=== PATIENT | male | born 1960 | race African-American/Black ===

== ENCOUNTER 2016-05-14 18:16 | Emergency (ER) | payer MEDICARE, MEDICAID, OTHER ==
[~2016-05-14] VITALS: Ht 172.7 cm; Wt 100.0 kg
[~2016-05-14 18:16] MED LIST: FLUT1SPR9; GLIP5 PO; GLUC10TA3 PO; LISI-360 PO; METF-324 PO; NAPR-576 PO; POLY10O RIGHT EYE; [UNRECOGNIZED DRUG - OTHER] PO
[2016-05-14 18:21] VITALS: BP 154/84; PULSE 99; RESP 16; TEMP 98.4; O2SAT 98
[2016-05-14] MEDS ORDERED: CANA300T PO (18:28)
[2016-05-14] MEDS ORDERED: LISI10TA3 PO (18:28)
[2016-05-14] MEDS ORDERED: METF1000 PO (18:28)
--- NOTE | 2016-05-14 18:35 | PD ---
HPI Chief Complaint: Cold / Flu Symptoms Time Seen by Provider: 18:35 Travel History International Travel<30 days: No Contact w/Intl Traveler<30days: No Traveled to known affect area: No History of Present Illness HPI 56-year-old male with history of DM, HTN presents to the ED for evaluation of 5 day history of sinus congestion, clear rhinorrhea, sore throat, nonproductive cough, subjective fevers. Gradual onset. Patient denies headache, chest pain, shortness breath, nausea, vomiting, abdominal pain, dysuria, back pain. He denies receiving this years flu vaccination. He endorses multiple sick contacts. He's been treating with [id number] cold medications with only mild improvement of his symptoms. PFSH Past Medical History Arthritis: Yes Asthma: No Blood Disorders: No Anxiety: No Depression: No Heart Rhythm Problems: No Cancer: No Cardiovascular Problems: No High Cholesterol: Yes Chemotherapy: No Chest Pain: No Congestive Heart Failure: No COPD: No Diabetes: Yes Patient Takes Glucophage: Yes Diminished Hearing: No Endocrine: Yes Gastrointestinal Disorders: No GERD: No Glaucoma: No Genitourinary: Yes (POLYURIA) Hiatal Hernia: No Hypertension: Yes Immune Disorder: No Implanted Vascular Access Dvce: No Musculoskeletal: Yes (CHRONIC BACK PAIN) Neurologic: No Psychiatric: No Reproductive: No Respiratory: Yes Myocardial Infarction: No Radiation Therapy: No Sickle Cell Disease: No Sleep Apnea: No Ulcer: No Tetanus Vaccination: > 5 Years PNEUMOCCOCAL Vaccine (Year): 1 Past Surgical History Abdominal Surgery: No AICD: No Appendectomy: No Arteriovenous Shunt: No Cardiac Surgery: No Ear Surgery: No Endocrine Surgery: No Eye Surgery: No Genitourinary Surgery: No Gynecologic Surgery: No Insulin Pump: No Joint Replacement: No Neurologic Surgery: No Oral Surgery: No Pacemaker: No Thoracic Surgery: No Other Surgery: Yes Social History Alcohol Use: No Tobacco Use: No Substance Use: No Allergies-Medications (Allergen,Severity, Reaction): Coded Allergies: No Known Allergies (Verified , 05/14/16) Reported Meds & Prescriptions Reported Meds & Active Scripts Active Azithromycin 250 Mg Tab 250 Mg PO DIRECTED Take 2 tabs (500 mg) on day 1 then 1 tab daily x 4 days. Reported Lisinopril 10 Mg Tab 10 Mg PO DAILY Invokana (Canagliflozin) 300 Mg Tab 300 Mg PO DAILY Take before 1st meal of day. Metformin (Metformin HCl) 1,000 Mg Tab 1,000 Mg PO BIDPC With meals Review of Systems Except as stated in HPI: all other systems reviewed are Neg Physical Exam Narrative GENERAL: Well-nourished, well-developed nontoxic appearing black male in no acute distress. SKIN: Warm and dry. HEAD: Normocephalic. Atraumatic. EYES: No scleral icterus. No injection or drainage. PERRLA. EOMI. ENT: Pearly aguero tympanic membranes bilaterally. Nasal mucosa is moist, mildly erythematous. Oropharynx with mild posterior erythema. No edema or exudate. Tonsils 1+ bilaterally. Uvula midline. NECK: Supple, trachea midline. No JVD or lymphadenopathy. CARDIOVASCULAR: Regular rate and rhythm without murmurs, gallops, or rubs. 2+ DP and radial pulses bilaterally. RESPIRATORY: Breath sounds clear and equal bilaterally. No accessory muscle use. GASTROINTESTINAL: Abdomen soft, non-tender, nondistended. + Bowel sounds MUSCULOSKELETAL: No cyanosis, or edema. Patient is ambulatory and moves extremities spontaneously. BACK: Nontender without obvious deformity. No CVA tenderness. Data Data Last Documented VS Vital Signs Date Time Temp Pulse Resp B/P Pulse Ox O2 Delivery O2 Flow Rate FiO2 05/14/16 18:21 98.4 99 16 154/84 98 Orders Influenzae A/B Antigen (05/14/16 18:39) Group A Rapid Strep Screen (05/14/16 18:39) Strep Culture (Group A) (05/14/16 18:40) MDM Medical Decision Making Medical Screen Exam Complete: Yes Emergency Medical Condition: Yes Differential Diagnosis Viral syndrome versus influenza versus pharyngitis versus strep pharyngitis versus less likely pneumonia versus other Narrative Course 56-year-old male with history of DM, HTN presents to the ED for evaluation of 5 day history of gradual onset sinus congestion, clear rhinorrhea, sore throat, nonproductive cough, subjective fevers. Patient denies headache, ear pain, chest pain, shortness breath, nausea, vomiting, abdominal pain, dysuria, back pain. He denies receiving this years flu vaccination. Vitals reviewed. Physical exam reveals a nontoxic-appearing black male in no acute distress. Pearly aguero tympanic membranes bilaterally, nasal mucosa mildly erythematous, moist, oropharynx with mild posterior erythema, 1+ tonsils. No exudates. Uvula midline. No LAD. Chest is clear to auscultation bilaterally. Influenza: Negative Rapid strep swab: Negative Given the patient's comorbidity of diabetes we'll treat for upper respiratory infection with Z-Tay. Patient is instructed to take all antibiotics as prescribed, even if symptoms resolve, continue with symptomatic treatment at home, follow-up with primary care provider. He indicated understanding of the instructions. He is amenable to plan of care. He is stable and discharged home. Diagnosis Primary Impression: Upper respiratory infection Qualified Code: J06.9 - Upper respiratory tract infection, unspecified type Referrals: Primary Care Physician Patient Instructions: General Instructions, Upper Respiratory Infection (ED) Additional Instructions: Rest, hydrate. Take all medication as prescribed, even if your symptoms resolve. Follow-up with the primary care provider this week. Return to the ED for any urgent or emergent medical condition. Med/Other Pt SpecificInfo: Prescription(s) given Scripts Azithromycin 250 Mg Eng303 Mg PO DIRECTED #6 TAB Ref 0 Take 2 tabs (500 mg) on day 1 then 1 tab daily x 4 days. Prov:Emiliana Luna MD 05/14/16 Disposition: 01 DISCHARGE HOME Condition: Stable Clarita Bingham May 14, 2016 18:35
[2016-05-14] MEDS ORDERED: AZIT250T3 PO (19:10)
== END 2016-05-14 19:27 | disposition home or self-care (01) ==
LOC: NETRI 18:16
DX: J06.9 Acute upper respiratory infection, unspecified (principal); R05 Cough; I10 Essential (primary) hypertension; E11.9 Type 2 diabetes mellitus without complications; E78.00 Pure hypercholesterolemia, unspecified; Z79.84 Long term (current) use of oral hypoglycemic drugs; Z87.39 Personal history of other diseases of the musculoskeletal system and connective tissue; Z87.448 Personal history of other diseases of urinary system; Z87.09 Personal history of other diseases of the respiratory system
CPT/HCPCS: 87081; 87804; 87880; 99283

== ENCOUNTER 2016-08-30 13:13 | Emergency (ER) | payer MEDICARE, MEDICAID ==
[~2016-08-30] VITALS: Ht 172.7 cm; Wt 101.0 kg
[~2016-08-30 13:13] MED LIST changes: +AZIT250T3 PO; +CANA300T PO; -FLUT1SPR9; -GLIP5 PO; -GLUC10TA3 PO; -LISI-360 PO; +LISI10TA3 PO; -METF-324 PO; +METF1000 PO; -NAPR-576 PO; -POLY10O RIGHT EYE; -[UNRECOGNIZED DRUG - OTHER] PO
[2016-08-30 13:15] VITALS: BP 118/63; PULSE 80; RESP 20; TEMP 97.5; O2SAT 97
[2016-08-30] MEDS ORDERED: ROBA500T PO (15:20)
[2016-08-30] MEDS ORDERED: IBUP800T23 PO (15:20)
--- NOTE | 2016-08-30 15:21 | PD ---
HPI Chief Complaint: Back/ Neck Pain or Injury Time Seen by Provider: 15:18 Travel History International Travel<30 days: No Contact w/Intl Traveler<30days: No Traveled to known affect area: No History of Present Illness HPI 56yo M c/o right sided low back w/ sciatica since Tuesday after bowling. Hx of chronic low back pain and sciatica [id number]. Denies encopresis, incontinence , saddle anesthesias. Denies paresthesias, loss of sensation, decreased range of motion, decreased strength bilateral lower extremities. Denies IV drug use, cancer. Denies fever, vomiting, abdominal pain. Taking any medications or tried any treatments to alleviate his symptoms. Pain is aggravated with inhalation and movement. No known allergies. Has no other medical complaints. No other modifying factors or associated signs and symptoms. PFSH Past Medical History Arthritis: Yes Asthma: No Blood Disorders: No Anxiety: No Depression: No Heart Rhythm Problems: No Cancer: No Cardiovascular Problems: Yes (HTN) High Cholesterol: Yes Chemotherapy: No Chest Pain: No Congestive Heart Failure: No COPD: No Diabetes: Yes Diminished Hearing: No Endocrine: Yes Gastrointestinal Disorders: No GERD: No Glaucoma: No Genitourinary: Yes (POLYURIA) Hiatal Hernia: No Hypertension: Yes Immune Disorder: No Implanted Vascular Access Dvce: No Musculoskeletal: Yes (CHRONIC BACK PAIN) Neurologic: No Psychiatric: No Reproductive: No Respiratory: Yes Myocardial Infarction: No Radiation Therapy: No Sickle Cell Disease: No Sleep Apnea: No Ulcer: No PNEUMOCCOCAL Vaccine (Year): 1 Past Surgical History Abdominal Surgery: No AICD: No Appendectomy: No Arteriovenous Shunt: No Cardiac Surgery: No Ear Surgery: No Endocrine Surgery: No Eye Surgery: No Genitourinary Surgery: No Gynecologic Surgery: No Insulin Pump: No Joint Replacement: No Neurologic Surgery: No Oral Surgery: No Pacemaker: No Thoracic Surgery: No Other Surgery: Yes Social History Alcohol Use: No Tobacco Use: No Substance Use: No Allergies-Medications (Allergen,Severity, Reaction): Coded Allergies: No Known Allergies (Verified , 08/30/16) Reported Meds & Prescriptions Reported Meds & Active Scripts Active Ibuprofen 800 Mg Tab 800 Mg PO Q6HR PRN Robaxin (Methocarbamol) 500 Mg Tab 500 Mg PO QID PRN Azithromycin 250 Mg Tab 250 Mg PO DIRECTED Take 2 tabs (500 mg) on day 1 then 1 tab daily x 4 days. Reported Lisinopril 10 Mg Tab 10 Mg PO DAILY Invokana (Canagliflozin) 300 Mg Tab 300 Mg PO DAILY Take before 1st meal of day. Metformin (Metformin HCl) 1,000 Mg Tab 1,000 Mg PO BIDPC With meals Review of Systems Except as stated in HPI: all other systems reviewed are Neg Physical Exam Narrative GENERAL: Well-nourished, well-developed male patient, in no acute distress SKIN: Warm and dry. HEAD: Atraumatic. Normocephalic. EYES: Pupils equal and round. No scleral icterus. No injection or drainage. ENT: Mucosa pink and moist. Airway patent. NECK: Trachea midline. CARDIOVASCULAR: Regular rate. RESPIRATORY: No accessory muscle use. GASTROINTESTINAL: Rounded. MUSCULOSKELETAL: Bilateral lower extremities supple and non-tense with 2+ pedal pulses and sensory intact; with full range of motion and 5/5 strength. 2 + DTRs bilaterally. Active dorsiflexion and extension of bilateral feet. Right straight leg raise is positive for low back pain. Ambulatory in room with normal gait. Sitting up in bed at 90. No obvious deformities. No clubbing. No cyanosis. No edema. BACK: No midline point tenderness on palpation of the lumbar spine. Tenderness on palpation of right iliosacral area. No obvious deformities. NEUROLOGICAL: Awake and alert. Oriented 3. No obvious cranial nerve deficits. Motor grossly within normal limits. Normal speech. Moves all extremities. 5/5 strength to all extremities. Sensory intact. PSYCHIATRIC: Appropriate mood and affect; insight and judgment normal. Data Data Last Documented VS Vital Signs Date Time Temp Pulse Resp B/P Pulse Ox O2 Delivery O2 Flow Rate FiO2 08/30/16 13:15 97.5 80 20 118/63 97 Room Air Orders Ketorolac Inj (Toradol Inj) (08/30/16 15:30) Orphenadrine Inj (Norflex Inj) (08/30/16 15:30) MDM Medical Decision Making Medical Screen Exam Complete: Yes Emergency Medical Condition: Yes Medical Record Reviewed: Yes Differential Diagnosis Acute exacerbation of chronic low back pain, sciatica, low back strain Narrative Course 56-year-old male with history of chronic low back pain and sciatica with acute exacerbation of low back pain with right-sided sciatica after bowling on Tuesday. Denies encopresis, incontinence, saddle anesthesias. Patient ambulatory in the room with normal gait. No midline point tenderness on palpation of the lumbar spine. Denies IV drug use or cancer. Patient afebrile nontoxic-appearing. He denies fever, vomiting. Toradol and Norflex administered in the ER. Ibuprofen and Robaxin prescribed for home. Patient verbalizes understanding and agreement with treatment plan. Patient is medically cleared and stable for discharge. Discussed reasons to return to the emergency department. Instructed patient to follow up with primary care provider. Patient agrees with treatment plan. The patients vital signs are stable and the patient is stable for outpatient follow-up and treatment. Patient discharged home, stable and in no acute distress. Diagnosis Primary Impression: Low back pain with right-sided sciatica Qualified Code: M54.41 - Right-sided low back pain with right-sided sciatica, unspecified chronicity Referrals: Primary Care Physician Patient Instructions: Acute Low Back Pain (ED), General Instructions, Sciatica (ED) Departure Forms: Tests/Procedures, Work Release Enter return to work date: September 02, 2016 Additional Instructions: Tylenol or ibuprofen as directed and as needed for pain Robaxin as prescribed and as needed for muscle spasms Heating pad and/or ice to affected area to reduce pain Avoid aggravating activities; increase activity as tolerated Follow-up with primary care provider Return to emergency department immediately with worsening of symptoms Med/Other Pt SpecificInfo: Prescription(s) given Scripts Ibuprofen 800 Mg [id number] Mg PO Q6HR PRN (PAIN) #30 TAB Ref 0 Prov:Essie Simon 08/30/16 Methocarbamol (Robaxin)500 Mg [id number] Mg PO QID PRN (MUSCLE SPASM) #30 TAB Ref 0 Prov:Essie Simon 08/30/16 Disposition: 01 DISCHARGE HOME Condition: Stable Essie Simon August 30, 2016 15:21 Essie Simon August 30, 2016 15:21
[2016-08-30] MEDS ORDERED: ORPHENADRINE INJ 60 MG/2 ML AMP IM ONE (15:30)
[2016-08-30] MEDS ORDERED: KETOROLAC TROMETHAMINE 60 MG/2 ML (IM) VIAL IM ONE (15:30)
== END 2016-08-30 15:40 | disposition home or self-care (01) ==
LOC: NEPK 13:13
DX: M54.41 Lumbago with sciatica, right side (principal); I10 Essential (primary) hypertension
CPT/HCPCS: 96372; 99283; J1885; J2360

== ENCOUNTER 2016-09-14 09:46 | Emergency (ER) | payer MEDICARE, MEDICAID ==
[~2016-09-14] VITALS: Ht 175.3 cm; Wt 100.0 kg
[~2016-09-14 09:46] MED LIST changes: +IBUP800T23 PO; +ROBA500T PO
[2016-09-14 09:49] VITALS: BP 145/92; PULSE 75; RESP 20; TEMP 97.5; O2SAT 98
[2016-09-14] MEDS ORDERED: SODIUM CHLOR 0.9% 1000 ML INJ 1,000 ML IV ONE (10:26)
[2016-09-14] MEDS ORDERED: ONDANSETRON HCL 4 MG/2 ML VIAL IVP ONE (10:30)
[2016-09-14] MEDS ORDERED: SODIUM CHLORIDE 0.9% FLUSH 10 ML FLUSH IVF PRN (10:30)
--- NOTE | 2016-09-14 10:36 | PD ---
HPI Chief Complaint: Dizziness Time Seen by Provider: 10:17 Travel History International Travel<30 days: No Contact w/Intl Traveler<30days: No Traveled to known affect area: No History of Present Illness HPI 56yo M with PMH of NIDDM presents to the ED with c/o not feeling well today. States he felt lightheaded when he stood up and felt nauseous. Also feels a little sob. Denies any fever, cough, chest pain, vomiting, abdominal pain, urinary complaint, diarrhea, focal weakness or numbness. PFSH Past Medical History Arthritis: Yes Asthma: No Blood Disorders: No Anxiety: No Depression: No Heart Rhythm Problems: No Cancer: No Cardiovascular Problems: Yes (htn) High Cholesterol: Yes Chemotherapy: No Chest Pain: No Congestive Heart Failure: No COPD: No Diabetes: Yes (metformin) Patient Takes Glucophage: Yes Diminished Hearing: No Endocrine: Yes Gastrointestinal Disorders: No GERD: No Glaucoma: No Genitourinary: Yes (POLYURIA) Hiatal Hernia: No Hypertension: Yes Immune Disorder: No Implanted Vascular Access Dvce: No Musculoskeletal: Yes (CHRONIC BACK PAIN) Neurologic: No Psychiatric: No Reproductive: No Respiratory: Yes Myocardial Infarction: No Radiation Therapy: No Sickle Cell Disease: No Sleep Apnea: No Ulcer: No PNEUMOCCOCAL Vaccine (Year): 1 Past Surgical History Abdominal Surgery: No AICD: No Appendectomy: No Arteriovenous Shunt: No Cardiac Surgery: No Ear Surgery: No Endocrine Surgery: No Eye Surgery: No Genitourinary Surgery: No Gynecologic Surgery: No Insulin Pump: No Joint Replacement: No Neurologic Surgery: No Oral Surgery: No Pacemaker: No Thoracic Surgery: No Other Surgery: Yes Social History Alcohol Use: No Tobacco Use: No Substance Use: No Allergies-Medications (Allergen,Severity, Reaction): Coded Allergies: No Known Allergies (Verified , 09/14/16) Reported Meds & Prescriptions Reported Meds & Active Scripts Active Reported Lisinopril 10 Mg Tab 10 Mg PO DAILY Invokana (Canagliflozin) 300 Mg Tab 300 Mg PO DAILY Take before 1st meal of day. Metformin (Metformin HCl) 1,000 Mg Tab 1,000 Mg PO BIDPC With meals Review of Systems Except as stated in HPI: all other systems reviewed are Neg Physical Exam Narrative GENERAL: 56yo M not in distress. SKIN: Focused skin assessment warm/dry. HEAD: Atraumatic. Normocephalic. EYES: Pupils equal and round. No scleral icterus. No injection or drainage. EOMI. No nystagmus. ENT: No nasal bleeding or discharge. Mucous membranes pink and moist. NECK: Trachea midline. No JVD. CARDIOVASCULAR: Regular rate and rhythm. No murmur appreciated. RESPIRATORY: No accessory muscle use. Clear to auscultation. Breath sounds equal bilaterally. GASTROINTESTINAL: Abdomen soft, non-tender, nondistended. No rebound tenderness or guading. MUSCULOSKELETAL: No obvious deformities. No clubbing. No cyanosis. No edema. NEUROLOGICAL: Awake and alert. No obvious cranial nerve deficits. Motor grossly within normal limits. Normal speech. PSYCHIATRIC: Appropriate mood and affect; insight and judgment normal. Data Data Last Documented VS Vital Signs Date Time Temp Pulse Resp B/P Pulse Ox O2 Delivery O2 Flow Rate FiO2 09/14/16 10:55 64 18 121/67 64 18 122/70 65 18 124/74 09/14/16 10:55 95 Room Air 09/14/16 09:49 97.5 Orders Electrocardiogram (09/14/16 10:26) Basic Metabolic Panel (Bmp) (09/14/16 10:26) Complete Blood Count With Diff (09/14/16 10:26) Ckmb (Isoenzyme) Profile (09/14/16 10:26) Troponin I (09/14/16 10:26) Ecg Monitoring (09/14/16 10:26) Iv Access Insert/Monitor (09/14/16 10:26) Oximetry (09/14/16 10:26) Ondansetron Inj (Zofran Inj) (09/14/16 10:30) Sodium Chloride 0.9% Flush (Ns Flush) (09/14/16 10:30) Sodium Chlor 0.9% 1000 Ml Inj (Ns 1000 M (09/14/16 10:26) Orthostatic Vital Signs (09/14/16 10:26) Chest, Single Ap (09/14/16 ) Urinalysis - C+S If Indicated (09/14/16 10:36) CKMB (09/14/16 10:30) CKMB% (09/14/16 10:30) Labs Laboratory Tests Test 09/14/16 10:30 White Blood Count 8.2 TH/MM3 Red Blood Count 6.03 MIL/MM3 Hemoglobin 17.0 GM/DL Hematocrit 51.1 % Mean Corpuscular Volume 84.8 FL Mean Corpuscular Hemoglobin 28.2 PG Mean Corpuscular Hemoglobin 33.2 % Concent Red Cell Distribution Width 13.6 % Platelet Count 202 TH/MM3 Mean Platelet Volume 9.8 FL Neutrophils (%) (Auto) 41.2 % Lymphocytes (%) (Auto) 46.1 % Monocytes (%) (Auto) 9.2 % Eosinophils (%) (Auto) 3.0 % Basophils (%) (Auto) 0.5 % Neutrophils # (Auto) 3.4 TH/MM3 Lymphocytes # (Auto) 3.8 TH/MM3 Monocytes # (Auto) 0.8 TH/MM3 Eosinophils # (Auto) 0.2 TH/MM3 Basophils # (Auto) 0.0 TH/MM3 CBC Comment AUTO DIFF Differential Comment AUTO DIFF CONFIRMED Sodium Level 137 MEQ/L Potassium Level 3.8 MEQ/L Chloride Level 102 MEQ/L Carbon Dioxide Level 25.3 MEQ/L Anion Gap 10 MEQ/L Blood Urea Nitrogen 16 MG/DL Creatinine 1.22 MG/DL Estimat Glomerular Filtration 75 ML/MIN Rate Random Glucose 199 MG/DL Calcium Level 9.3 MG/DL Total Creatine Kinase 244 U/L Creatine Kinase MB 1.6 NG/ML Troponin I LESS THAN 0.02 NG/ML MDM Medical Decision Making Medical Screen Exam Complete: Yes Emergency Medical Condition: Yes Interpretation(s) EKG: NSR 66bpm. Normal axis. Q wave in III, aVF. No ST segment elevation or depression. Differential Diagnosis Dehydration vs. electrolyte abnormality vs. pneumonia Narrative Course 56yo M with c/o lightheadedness today. Labs reviewed, no leukocytosis. H/H on the higher side. Troponin negative. Orthostatic negative. CXR negative. Upon reevaluation, pt states he had fentanyl patch on for back pain yesterday and he has never had this before. Pt reevaluated at bedside and is feeling better. Return precautions given. Diagnosis Primary Impression: Lightheadedness Patient Instructions: General Instructions Departure Forms: Tests/Procedures Additional Instructions: Please follow up with your PMD in 3-7 days. Return to the ED if symptoms worsen. Med/Other Pt SpecificInfo: No Change to Meds Disposition: 01 DISCHARGE HOME Condition: Stable Ana M Tamayoana MARTINEZ September 14, 2016 10:36
[2016-09-14 10:54] LABS: AUTOMATED NEUTROPHIL # 3.4 TH/MM3 (1.8-7.7); BASOPHIL % 0.5 % (0.0-2.0); EOSINOPHIL # 0.2 TH/MM3 (0-0.4); HEMATOCRIT 51.1 % (39.0-51.0); LYMPH % 46.1 % (9.0-44.0); LYMPHOCYTE # 3.8 TH/MM3 (1.0-4.8); MEAN CELL VOLUME 84.8 FL (80.0-100.0); MEAN CORPUSCULAR HEMOGLOBIN 28.2 PG (27.0-34.0); MEAN CORPUSCULAR HGB CONC 33.2 % (32.0-36.0); MONO % 9.2 % (0.0-8.0); NEUT % 41.2 % (16.0-70.0); PLATELET COUNT 202 TH/MM3 (150-450); RED BLOOD COUNT 6.03 MIL/MM3 (4.50-5.90); RED CELL DISTRIBUTION WIDTH 13.6 % (11.6-17.2); WHITE BLOOD COUNT 8.2 TH/MM3 (4.0-11.0)
[2016-09-14 10:55] VITALS: BP_SYST 121; BP_SYST 122; BP_SYST 124; BP_DIAS 67; BP_DIAS 70; BP_DIAS 74; RESP 18; O2SAT 95
[2016-09-14 10:57] LABS: HEMO FLAGS AUTO DIFF
--- NOTE | 2016-09-14 11:07 | RADRPT ---
EXAM DATE/TIME: 09/14/2016 10:43 [facility] COMPARISON: No previous studies available for comparison. INDICATIONS : Short of breath, sweats, dizzy MEDICAL HISTORY : diabetes, high blood pressure. SURGICAL HISTORY : None. ENCOUNTER: Initial ACUITY: 1 day PAIN SCORE: 0/10 LOCATION: Bilateral chest FINDINGS: A single view of the chest demonstrates the lungs to be symmetrically aerated without evidence of mas s, infiltrate or effusion. The cardiomediastinal contours are unremarkable. Osseous structures are intact. CONCLUSION: Normal examination for a patient of this age. Jamil Mcdermott MD on September 14, 2016 at 11:06 Board Certified Radiologist. This report was verified electronically.
[2016-09-14 11:20] LABS: ANION GAP 10 MEQ/L (5-15); BICARBONATE 25.3 MEQ/L (21.0-32.0); BLOOD UREA NITROGEN 16 MG/DL (7-18); CHLORIDE 102 MEQ/L (98-107); CREATINE KINASE 244 U/L (39-308); GLOMERULAR FILTRATION RATE 75 ML/MIN (>89); SODIUM (NA) 137 MEQ/L (136-145)
[2016-09-14 11:21] LABS: POTASSIUM 3.8 MEQ/L (3.5-5.1)
[2016-09-14 11:32] LABS: SCAN/DIFF AUTO DIFF CONFIRMED
[2016-09-14 11:34] LABS: CKMB 1.6 NG/ML (0.5-3.6)
[2016-09-14 12:15] LABS: BLOOD, URINE NEG (NEG); COMMENT (UR) CULT NOT INDICATED; CULTURE IF INDICATED CULT NOT INDICATED; GLUCOSE,URINE 1000 mg/dL (NEG); KETONE, URINE 10 mg/dL (NEG); MUCUS URINE FEW /lpf (OCC); NITRITE,URINE NEG (NEG); SQUAMOUS EPITHELIAL CELL URINE <1 /hpf (0-5); URINE COLOR LIGHT-YELLOW (YELLW/STRAW)
--- NOTE | 2016-09-15 09:44 | EKG ---
Date Performed: 09/14/2016 Time Performed: 10:55:14 PTAGE: 56 years EKG: Sinus rhythm PROBABLE INFERIOR MYOCARDIAL INFARCTION ABNORMAL ECG PREVIOUS TRACING : 04/03/2011 17.15 DOCTOR: Thanh Braun Interpretating Date/Time 09/15/2016 09:42:37
== END 2016-09-14 12:28 | disposition home or self-care (01) ==
LOC: NEPE 09:46
DX: R42 Dizziness and giddiness (principal); R11.0 Nausea; R06.02 Shortness of breath; R94.31 Abnormal electrocardiogram [ECG] [EKG]; I10 Essential (primary) hypertension; E11.9 Type 2 diabetes mellitus without complications; E78.00 Pure hypercholesterolemia, unspecified; Z79.84 Long term (current) use of oral hypoglycemic drugs; Z87.39 Personal history of other diseases of the musculoskeletal system and connective tissue; Z86.79 Personal history of other diseases of the circulatory system; Z87.448 Personal history of other diseases of urinary system
CPT/HCPCS: 71010; 80048; 81001; 82550; 82552; 84484; 85025; 93005; 96374; 99285; J2405; J7030

== ENCOUNTER 2016-12-29 22:02 | Emergency (ER) | payer MEDICARE, MEDICAID ==
[~2016-12-29] VITALS: Ht 172.7 cm; Wt 100.0 kg
[~2016-12-29 22:02] MED LIST changes: -AZIT250T3 PO; -IBUP800T23 PO; -ROBA500T PO
[2016-12-29 22:04] VITALS: BP 160/83; PULSE 85; RESP 16; TEMP 98.5; O2SAT 96
[2016-12-29] MEDS ORDERED: CEPH-460 PO (23:08)
[2016-12-29] MEDS ORDERED: BACT800T5 PO (23:08)
--- NOTE | 2016-12-29 23:12 | PD ---
HPI Chief Complaint: Injury Time Seen by Provider: 23:09 Travel History International Travel<30 days: No Contact w/Intl Traveler<30days: No Traveled to known affect area: No History of Present Illness HPI 56-year-old right-hand dominant black male presents to emergency department with complains of pain and swelling to his right little finger. He states that he does not recall any direct injury. He states the pain is at the tip of his finger around the nail. Symptoms been present now for the last 2 days. He denies any fever chills. No drainage. Symptoms are moderate. No alleviating activity. PFSH Past Medical History Narrative Medical Diabetes and hypertension Arthritis: Yes Asthma: No Blood Disorders: No Anxiety: No Depression: No Heart Rhythm Problems: No Cancer: No Cardiovascular Problems: Yes (htn) High Cholesterol: Yes Chemotherapy: No Chest Pain: No Congestive Heart Failure: No COPD: No Diabetes: Yes (on metformin) Patient Takes Glucophage: Yes Diminished Hearing: No Endocrine: Yes Gastrointestinal Disorders: No GERD: No Glaucoma: No Genitourinary: Yes (POLYURIA) Hiatal Hernia: No Heparin Induced Thrombocytopen: No Hypertension: Yes Immune Disorder: No Implanted Vascular Access Dvce: No Musculoskeletal: Yes (CHRONIC BACK PAIN) Neurologic: No Psychiatric: No Reproductive: No Respiratory: Yes Myocardial Infarction: No Radiation Therapy: No Sickle Cell Disease: No Sleep Apnea: No Ulcer: No Tetanus Vaccination: > 5 Years PNEUMOCCOCAL Vaccine (Year): 1 Past Surgical History Abdominal Surgery: No AICD: No Appendectomy: No Arteriovenous Shunt: No Cardiac Surgery: No Ear Surgery: No Endocrine Surgery: No Eye Surgery: No Genitourinary Surgery: No Gynecologic Surgery: No Insulin Pump: No Joint Replacement: No Neurologic Surgery: No Oral Surgery: No Pacemaker: No Thoracic Surgery: No Other Surgery: Yes Social History Alcohol Use: No Tobacco Use: No Substance Use: No Allergies-Medications (Allergen,Severity, Reaction): Coded Allergies: No Known Allergies (Verified , 12/29/16) Reported Meds & Prescriptions Reported Meds & Active Scripts Active Reported Lisinopril 10 Mg Tab 10 Mg PO DAILY Invokana (Canagliflozin) 300 Mg Tab 300 Mg PO DAILY Take before 1st meal of day. Metformin (Metformin HCl) 1,000 Mg Tab 1,000 Mg PO BIDPC With meals Review of Systems Except as stated in HPI: all other systems reviewed are Neg Physical Exam Narrative GENERAL: This is a well-nourished, well-developed patient, in no apparent distress. SKIN: No rashes, ecchymoses or lesions. Warm and dry. HEAD: Atraumatic. Normocephalic. EYES: PERRL, EOMI, no discharge or injection. No scleral icterus. EARS: Clear NOSE: Nasal turbinates appear normal. THROAT: Mucosa pink and moist. Airway patent. NECK: Trachea midline. supple, moves head freely. LUNGS: Clear to auscultation. CV: Regular in rhythm. ABDOMEN: Soft nontender. EXT: No clubbing cyanosis. Examination the right little finger reveals tenderness to the distal tip along with tenderness along the radial side the nailbed. There is some mild swelling. No erythema or fluctuance. No involvement of the nail. Patient is able to extend and flex his finger freely. He has intact sensation with good Refill. Data Data Last Documented VS Vital Signs Date Time Temp Pulse Resp B/P (MAP) Pulse Ox O2 Delivery O2 Flow Rate FiO2 12/29/16 22:04 98.5 85 16 160/83 (108) 96 Room Air Orders Orders Tetanus/Diphtheria Tox Adult (Tetanus/Di (12/29/16 23:15) Sulfamet-Trimeth Ds 800-160 Mg (Bactrim (12/29/16 23:15) Cephalexin (Keflex) (12/29/16 23:15) MDM Medical Decision Making Medical Screen Exam Complete: Yes Emergency Medical Condition: Yes Medical Record Reviewed: Yes Differential Diagnosis MDM: High Differential diagnoses: Abscess, folliculitis, cellulitis, lymphangitis, abrasion, contact dermatitis, paronychia Narrative Course Patient has a paronychia which has been incised and drained. Patient given active DS and Keflex 500 mg by mouth. Procedures Procedure Narrative I&D abscess: After the risks and benefits were discussed the following procedure was performed. The skin is prepped and draped in the usual sterile fashion using Betadine. The abscess is anesthetized with 1% lidocaine digital block. After adequate anesthesia, an 11 blade scalpel is used to make a stab incision along the lateral aspect of the nailbed.. A small amount of Perulant material is expressed along with some blood. The wound is cleansed deeply using dilute Betadine and peroxide on Q-tips. A clean dressing is applied. The patient tolerated the procedure well. There was no complications. Follow-up instructions were given to the patient. Diagnosis Primary Impression: Paronychia of right little finger Patient Instructions: General Instructions Additional Instructions: Rest. Elevation. Daily wound care with soap, water, Neosporin. Soak in Epsom salts 3 times daily. 3 Advil every 6 hours as needed for pain. Keflex and Bactrim DS. Recheck with your doctor in the next 3-5 days. Return to the ER if any problems. Med/Other Pt SpecificInfo: Prescription(s) given Scripts Cephalexin (Keflex) 500 Mg Capsule 500 MG PO Q6H for Infection, #28 CAP 0 Refills Prov: Tanya Tamayo DO 12/29/16 Sulfamethoxazole-Trimethoprim (Bactrim DS) 800-160 Mg Tab 1 TAB PO BID for Infection, #14 TAB 0 Refills Prov: Tanya Tamayo DO 12/29/16 Disposition: 01 DISCHARGE HOME Condition: Stable Evert Sandoval Dec 29, 2016 23:12
[2016-12-29] MEDS ORDERED: SULFAMETHOXAZOLE-TRIMETHOPRIM DS 800-160 MG TAB PO ONE (23:15)
[2016-12-29] MEDS ORDERED: CEPHALEXIN MONOHYDRATE 500 MG CAP PO ONE (23:15)
[2016-12-29] MEDS ORDERED: TETANUS/DIPHTHERIA TOXOID ADULT 0.5 ML VIAL IM ONE (23:15)
== END 2016-12-29 23:24 | disposition home or self-care (01) ==
LOC: EDTENT 22:02
DX: L03.011 Cellulitis of right finger (principal); L02.511 Cutaneous abscess of right hand; Z23 Encounter for immunization
CPT/HCPCS: 10060; 90471; 90714

== ENCOUNTER 2017-03-17 03:22 | Emergency (ER) | payer MEDICAID, MEDICARE ==
[~2017-03-17] VITALS: Ht 175.3 cm; Wt 100.0 kg
[~2017-03-17 03:22] MED LIST changes: +BACT800T5 PO; +CEPH-460 PO
[2017-03-17 03:23] VITALS: BP 126/86; PULSE 93; RESP 16; TEMP 97.7; O2SAT 100
[2017-03-17] MEDS ORDERED: LISI-519 PO (03:41)
[2017-03-17] MEDS ORDERED: GLIP5TAB8 PO (03:41)
[2017-03-17] MEDS ORDERED: AMOX500T PO (03:55)
--- NOTE | 2017-03-17 03:59 | PD ---
HPI Chief Complaint: ENT Complaint Time Seen by Provider: 03:44 Travel History International Travel<30 days: No Contact w/Intl Traveler<30days: No Traveled to known affect area: No History of Present Illness HPI 57-year-old black male presents emergency Department with complaints of sore throat of 2 days' duration. He states that he has had subjective fever and chills, ear pain, sore throat, some congestion slight cough, and loose stools. He denies any shortness of breath or wheezing. No nausea vomiting. No abdominal pain or urinary symptoms. Symptoms are mild to moderate. Worse with swallowing. No alleviating factors. PFSH Past Medical History Arthritis: Yes Asthma: No Blood Disorders: No Anxiety: No Depression: No Heart Rhythm Problems: No Cancer: No Cardiovascular Problems: Yes (htn) High Cholesterol: Yes Chemotherapy: No Chest Pain: No Congestive Heart Failure: No COPD: No Diabetes: Yes Patient Takes Glucophage: Yes Diminished Hearing: No Endocrine: Yes Gastrointestinal Disorders: No GERD: No Glaucoma: No Genitourinary: Yes (POLYURIA) Hiatal Hernia: No Heparin Induced Thrombocytopen: No Hypertension: Yes Immune Disorder: No Implanted Vascular Access Dvce: No Musculoskeletal: Yes (CHRONIC BACK PAIN) Neurologic: No Psychiatric: No Reproductive: No Respiratory: Yes Myocardial Infarction: No Radiation Therapy: No Sickle Cell Disease: No Sleep Apnea: No Ulcer: No Tetanus Vaccination: < 5 Years PNEUMOCCOCAL Vaccine (Year): 1 Past Surgical History Abdominal Surgery: No AICD: No Appendectomy: No Arteriovenous Shunt: No Cardiac Surgery: No Ear Surgery: No Endocrine Surgery: No Eye Surgery: No Genitourinary Surgery: No Gynecologic Surgery: No Insulin Pump: No Joint Replacement: No Neurologic Surgery: No Oral Surgery: No Pacemaker: No Thoracic Surgery: No Other Surgery: Yes Social History Alcohol Use: No Tobacco Use: No Substance Use: No Allergies-Medications (Allergen,Severity, Reaction): Coded Allergies: No Known Allergies (Verified Adverse Reaction, Unknown, 03/17/17) Reported Meds & Prescriptions Reported Meds & Active Scripts Active Amoxicillin 500 Mg Tab 500 Mg PO TID 10 Days Reported Lisinopril 5 Mg Tab 5 Mg PO DAILY Glipizide 5 Mg Tab 5 Mg PO DAILY Take 30 minutes before a meal Metformin (Metformin HCl) 1,000 Mg Tab 1,000 Mg PO BIDPC With meals Review of Systems Except as stated in HPI: all other systems reviewed are Neg Physical Exam Narrative GENERAL: Well-developed, well-nourished in no acute distress. Nontoxic appearing. HEAD: Normocephalic, atraumatic. EYES: Pupils equal round and reactive. Extraocular motions intact. No scleral icterus. No injection or drainage. ENT: TMs clear without erythema. The external auditory canals clear. Nose: clear . Posterior pharynx is mildly erythematous and moist. No tonsillar edema or exudate. Uvula midline. Airway patent. NECK: Trachea midline.Supple, nontender, moves head freely. No central bony tenderness or spasm. CARDIOVASCULAR: Regular rate and rhythm without murmurs, gallops, or rubs. RESPIRATORY: Clear to auscultation. Breath sounds equal bilaterally. No wheezes , rales, or rhonchi. GASTROINTESTINAL: Abdomen soft, non-tender, nondistended. No hepato-splenomegaly , or palpable masses. No guarding. EXTREMITIES: No clubbing, cyanosis, or edema. No joint tenderness, effusion, or edema noted. BACK: Nontender without deformity or crepitance. No flank tenderness. Data Data Last Documented VS Vital Signs Date Time Temp Pulse Resp B/P (MAP) Pulse Ox O2 Delivery O2 Flow Rate FiO2 03/17/17 03:37 16 03/17/17 03:23 97.7 93 126/86 (99) 100 Room Air Orders Orders Ed Discharge Order (03/17/17 03:54) Amoxicillin (Trimox) (03/17/17 04:00) MDM Medical Decision Making Medical Screen Exam Complete: Yes Emergency Medical Condition: Yes Medical Record Reviewed: Yes Differential Diagnosis MDM: High Differential diagnoses: Pneumonia, bronchitis, URI, pharyngitis Narrative Course Patient given amoxicillin 500 mg by mouth. This is acute pharyngitis, URI Diagnosis Primary Impression: Acute pharyngitis Qualified Codes: J02.9 - Acute pharyngitis, unspecified Additional Impression: URI Patient Instructions: General Instructions Additional Instructions: Rest. Force fluids. Saltwater gargles. Tylenol and Advil. Chloraseptic [place] Cepastat lozenge. Amoxicillin. Follow-up with a primary care doctor in one week. Return to the ER if any problems. Med/Other Pt SpecificInfo: Prescription(s) given Scripts Amoxicillin (Amoxicillin) 500 Mg Tab 500 MG PO TID for Infection for 10 Days, TAB 0 Refills Prov: Carlos Meyers MD 03/17/17 Disposition: 01 DISCHARGE HOME Condition: Stable Evert Sandoval Mar 17, 2017 03:59
[2017-03-17] MEDS ORDERED: AMOXICILLIN (TRIHYDRATE) 500 MG CAP PO ONE (04:00)
== END 2017-03-17 04:25 | disposition home or self-care (01) ==
LOC: NEPD 03:22
DX: J02.9 Acute pharyngitis, unspecified (principal); J06.9 Acute upper respiratory infection, unspecified; R50.9 Fever, unspecified; R05 Cough; R19.7 Diarrhea, unspecified; E11.9 Type 2 diabetes mellitus without complications; I10 Essential (primary) hypertension; E78.00 Pure hypercholesterolemia, unspecified; Z79.84 Long term (current) use of oral hypoglycemic drugs; Z87.39 Personal history of other diseases of the musculoskeletal system and connective tissue; Z86.79 Personal history of other diseases of the circulatory system; Z87.448 Personal history of other diseases of urinary system
CPT/HCPCS: 99282

== ENCOUNTER 2017-06-10 13:52 | Observation (INO) | payer MEDICARE, MEDICAID ==
[~2017-06-10] VITALS: Ht 175.3 cm; Wt 102.0 kg
[~2017-06-10 13:52] MED LIST changes: +AMOX500T PO; -BACT800T5 PO; -CANA300T PO; -CEPH-460 PO; +GLIP5TAB8 PO; +LISI-519 PO; -LISI10TA3 PO
[2017-06-10 13:54] VITALS: BP 127/59; PULSE 89; RESP 18; TEMP 99.7; O2SAT 98
[2017-06-10 15:40] LABS: BASOPHIL % 0.7 % (0.0-2.0); EOSINOPHIL % 0.7 % (0.0-4.0); HEMATOCRIT 48.6 % (39.0-51.0); HEMOGLOBIN 16.3 GM/DL (13.0-17.0); LYMPH % 47.5 % (9.0-44.0); LYMPHOCYTE # 2.4 TH/MM3 (1.0-4.8); MEAN CELL VOLUME 85.8 FL (80.0-100.0); MEAN CORPUSCULAR HEMOGLOBIN 28.8 PG (27.0-34.0); MEAN CORPUSCULAR HGB CONC 33.6 % (32.0-36.0); MONO % 11.1 % (0.0-8.0); MONOCYTE # 0.6 TH/MM3 (0-0.9); PLATELET COUNT 146 TH/MM3 (150-450); RED BLOOD COUNT 5.66 MIL/MM3 (4.50-5.90); RED CELL DISTRIBUTION WIDTH 13.4 % (11.6-17.2); WHITE BLOOD COUNT 5.1 TH/MM3 (4.0-11.0)
[2017-06-10 15:43] LABS: BILIRUBIN, URINE NEG (NEG); BLOOD, URINE NEG (NEG); GLUCOSE,URINE NEG (NEG); HYALINE CAST, URINE 110 /lpf (RARE); KETONE, URINE NEG (NEG); MUCUS URINE MOD /lpf (OCC); NITRITE,URINE NEG (NEG); PH, URINE 5.5 (5.0-8.5); SQUAMOUS EPITHELIAL CELL URINE 1 /hpf (0-5); URINE COLOR YELLOW (YELLW/STRAW); URINE LEUKOCYTE ESTERASE NEG (NEG)
[2017-06-10 15:53] LABS: ALBUMIN 3.7 GM/DL (3.4-5.0); ALT (GPT) 60 U/L (12-78); AST (GOT) 41 U/L (15-37); BICARBONATE 26.6 MEQ/L (21.0-32.0); BLOOD UREA NITROGEN 20 MG/DL (7-18); CALCIUM 8.8 MG/DL (8.5-10.1); CHLORIDE 101 MEQ/L (98-107); CREATININE 1.42 MG/DL (0.60-1.30); GLOMERULAR FILTRATION RATE 63 ML/MIN (>89); GLUCOSE,RANDOM 151 MG/DL (74-106); SODIUM (NA) 135 MEQ/L (136-145)
[2017-06-10 15:55] LABS: ALKALINE PHOSPHATASE 62 U/L (45-117); TOTAL BILIRUBIN ADULT 0.5 MG/DL (0.2-1.0); TOTAL PROTEIN 8.3 GM/DL (6.4-8.2)
[2017-06-10 16:42] VITALS: BP 121/67; PULSE 77; RESP 16; RESP 17; O2SAT 99
[2017-06-10] MEDS ORDERED: SODIUM CHLOR 0.9% 1000 ML INJ 1,000 ML IV ONE (17:00)
--- NOTE | 2017-06-10 17:05 | PD ---
HPI Chief Complaint: Abdominal Pain Time Seen by Provider: 16:50 Travel History International Travel<30 days: No Contact w/Intl Traveler<30days: No Traveled to known affect area: No History of Present Illness HPI 57-year-old male here for evaluation of abdominal pain, diarrhea, cough, sore throat. The patient reports that he had the flu about a week ago and was given a prescription for azithromycin which he finished on . Reports today he felt lightheaded/dizzy which has been intermittent and worse with standing. He also had periumbilical abdominal pain that radiates to his bilateral flanks. He denies history of abdominal surgeries. Currently he is pain-free. Pain was sharp, no modifying factors. No vomiting. He believes he may have a fever. He is also complaining of sore throat and a cough that was productive yesterday of yellowish sputum. No urinary symptoms. PFSH Past Medical History Arthritis: Yes Asthma: No Blood Disorders: No Anxiety: No Depression: No Heart Rhythm Problems: No Cancer: No Cardiovascular Problems: Yes (htn) High Cholesterol: Yes Chemotherapy: No Chest Pain: No Congestive Heart Failure: No COPD: No Diabetes: Yes Patient Takes Glucophage: Yes Diminished Hearing: No Endocrine: Yes Gastrointestinal Disorders: No GERD: No Glaucoma: No Genitourinary: Yes (POLYURIA) Hiatal Hernia: No Heparin Induced Thrombocytopen: No Hypertension: Yes Immune Disorder: No Implanted Vascular Access Dvce: No Musculoskeletal: Yes (CHRONIC BACK PAIN) Neurologic: No Psychiatric: No Reproductive: No Respiratory: Yes Myocardial Infarction: No Radiation Therapy: No Sickle Cell Disease: No Sleep Apnea: No Ulcer: No Tetanus Vaccination: < 5 Years Influenza Vaccination: Yes PNEUMOCCOCAL Vaccine (Year): 1 Past Surgical History Abdominal Surgery: No AICD: No Appendectomy: No Arteriovenous Shunt: No Cardiac Surgery: No Ear Surgery: No Endocrine Surgery: No Eye Surgery: No Genitourinary Surgery: No Gynecologic Surgery: No Insulin Pump: No Joint Replacement: No Neurologic Surgery: No Oral Surgery: No Pacemaker: No Thoracic Surgery: No Other Surgery: Yes Social History Alcohol Use: No Tobacco Use: No Substance Use: No Allergies-Medications (Allergen,Severity, Reaction): Coded Allergies: No Known Allergies (Verified Adverse Reaction, Unknown, 03/17/17) Reported Meds & Prescriptions Reported Meds & Active Scripts Active Reported Lisinopril 5 Mg Tab 5 Mg PO DAILY Glipizide 5 Mg Tab 5 Mg PO DAILY Take 30 minutes before a meal Metformin (Metformin HCl) 1,000 Mg Tab 1,000 Mg PO BIDPC With meals Review of Systems Except as stated in HPI: all other systems reviewed are Neg Physical Exam Narrative GENERAL: Well-developed, well-nourished, comfortable, no apparent distress. SKIN: Focused skin assessment warm/dry. No rash. HEAD: Atraumatic. Normocephalic. EYES: Pupils equal and round. No scleral icterus. No injection or drainage. ENT: No nasal bleeding or discharge. Mucous membranes pink and moist. Pharynx with mild erythema without exudates. Uvula midline. Normal phonation. No drooling or stridor. NECK: Trachea midline. No JVD. No nuchal rigidity. CARDIOVASCULAR: Regular rate and rhythm. RESPIRATORY: No accessory muscle use. Clear to auscultation. Breath sounds equal bilaterally. GASTROINTESTINAL: Abdomen soft, non-tender, nondistended. MUSCULOSKELETAL: No obvious deformities. No clubbing. No cyanosis. No edema. NEUROLOGICAL: Awake and alert. No obvious cranial nerve deficits. Motor grossly within normal limits. Normal speech. PSYCHIATRIC: Appropriate mood and affect; insight and judgment normal. Data Data Last Documented VS Vital Signs Date Time Temp Pulse Resp B/P (MAP) Pulse Ox O2 Delivery O2 Flow Rate FiO2 06/10/17 16:42 99 Room Air 06/10/17 16:42 77 17 121/67 (85) 06/10/17 13:54 99.7 Orders Orders Complete Blood Count With Diff (06/10/17 14:18) Comprehensive Metabolic Panel (06/10/17 14:18) Urinalysis - C+S If Indicated (06/10/17 14:18) Iv Access Insert/Monitor (06/10/17 14:18) Oxygen Administration (06/10/17 14:18) Oximetry (06/10/17 14:18) Lipase (06/10/17 14:18) Sodium Chlor 0.9% 1000 Ml Inj (Ns 1000 M (06/10/17 17:00) Group A Rapid Strep Screen (06/10/17 16:53) Influenzae A/B Antigen (06/10/17 16:53) Chest, Single Ap (06/10/17 ) Ct Abd/Pel W Iv Contrast(Rout) (06/10/17 ) Strep Culture (Group A) (06/10/17 17:00) Iohexol 350 Inj (Omnipaque 350 Inj) (06/10/17 17:41) Oseltamivir (Tamiflu) (06/10/17 18:00) Piperacil-Tazo 3.375 Gm Premix (Zosyn 3. (06/10/17 19:15) Labs Laboratory Tests Test 06/10/17 14:40 06/10/17 14:42 White Blood Count 5.1 TH/MM3 Red Blood Count 5.66 MIL/MM3 Hemoglobin 16.3 GM/DL Hematocrit 48.6 % Mean Corpuscular Volume 85.8 FL Mean Corpuscular Hemoglobin 28.8 PG Mean Corpuscular Hemoglobin Concent 33.6 % Red Cell Distribution Width 13.4 % Platelet Count 146 TH/MM3 Mean Platelet Volume 10.0 FL Neutrophils (%) (Auto) 40.0 % Lymphocytes (%) (Auto) 47.5 % Monocytes (%) (Auto) 11.1 % Eosinophils (%) (Auto) 0.7 % Basophils (%) (Auto) 0.7 % Neutrophils # (Auto) 2.0 TH/MM3 Lymphocytes # (Auto) 2.4 TH/MM3 Monocytes # (Auto) 0.6 TH/MM3 Eosinophils # (Auto) 0.0 TH/MM3 Basophils # (Auto) 0.0 TH/MM3 CBC Comment DIFF FINAL Differential Comment Blood Urea Nitrogen 20 MG/DL Creatinine 1.42 MG/DL Random Glucose 151 MG/DL Total Protein 8.3 GM/DL Albumin 3.7 GM/DL Calcium Level 8.8 MG/DL Alkaline Phosphatase 62 U/L Aspartate Amino Transf (AST/SGOT) 41 U/L Alanine Aminotransferase (ALT/SGPT) 60 U/L Total Bilirubin 0.5 MG/DL Sodium Level 135 MEQ/L Potassium Level 4.5 MEQ/L Chloride Level 101 MEQ/L Carbon Dioxide Level 26.6 MEQ/L Anion Gap 7 MEQ/L Estimat Glomerular Filtration Rate 63 ML/MIN Lipase 116 U/L Urine Color YELLOW Urine Turbidity HAZY Urine pH 5.5 Urine Specific [place] 1.029 Urine Protein 30 mg/dL Urine Glucose (UA) NEG mg/dL Urine Ketones NEG mg/dL Urine Occult Blood NEG Urine Nitrite NEG Urine Bilirubin NEG Urine Urobilinogen LESS THAN 2.0 MG/DL Urine Leukocyte Esterase NEG Urine WBC 2 /hpf Urine Squamous Epithelial Cells 1 /hpf Urine Hyaline Casts 110 /lpf Urine Mucus MOD /lpf Microscopic Urinalysis Comment CULT NOT INDICATED MDM Medical Decision Making Medical Screen Exam Complete: Yes Emergency Medical Condition: Yes Medical Record Reviewed: Yes Differential Diagnosis Viral illness, URI, influenza, strep pharyngitis, pancreatitis, pyelonephritis, biliary disease, diverticulitis, colitis Narrative Course Vital signs reviewed. Patient has a slight fever of 99.7F. CBC: WBC 5.1, hemo-limits seen 0.3, hematocrit 40.6, platelets 146, lymphocytes 47.5%, monocytes 11%. CMP is remarkable for BUN 20, creatinine 1.42, GFR 63, random glucose 151, otherwise unremarkable. Lipase is 116. UA is not suggestive of UTI. Influenza B-positive Chest x-ray: The lungs are clear CT abdomen pelvis: CONCLUSION: 1. Normal appearing proximal appendix. The distal appendix is slightly prominent measuring up to 9 mm and fluid filled. There is no significant periappendiceal inflammatory change. The findings are nonspecific and although unlikely, a developing distal appendicitis cannot be entirely excluded. 2. Otherwise, no acute CT adenopathy in the abdomen or pelvis. 3. 3 cm cyst in the inferior pole of the right kidney with additional subcentimeter cystic lesions which are too small to fully characterize in both kidneys. Patient was made aware of all findings. He was started on Tamiflu and given a liter of normal saline IV. He does have some mild periumbilical tenderness. There is no right lower quadrant tenderness. No peritoneal signs. I discussed the case with on-call general surgeon Dr. Florence. Plan at this time as a start the patient on IV antibiotics and admitted to the medical service. He will see the patient in consultation. Case discussed with hospitalist Dr. Radford who will admit the patient to her service. Diagnosis Primary Impression: Influenza B Additional Impressions: Abdominal pain Qualified Codes: R10.33 - Periumbilical pain R/O Appenicitis Todd Zhou MD Jun 10, 2017 17:05
--- NOTE | 2017-06-10 17:37 | RADRPT ---
EXAM DATE/TIME: 06/10/2017 17:03 [facility] COMPARISON: CHEST SINGLE AP, September 14, 2016, 10:43. INDICATIONS : Cough. MEDICAL HISTORY : None. SURGICAL HISTORY : None. ENCOUNTER: Initial ACUITY: 4 - 6 days PAIN SCORE: 3/10 LOCATION: Bilateral upper chest FINDINGS: A single view of the chest demonstrates the lungs to be symmetrically aerated without evidence of mas s, infiltrate or effusion. The cardiomediastinal contours are unremarkable. Osseous structures are intact. CONCLUSION: The lungs are clear. Antonino Bryson MD on June 10, 2017 at 17:35 Board Certified Radiologist. This report was verified electronically.
[2017-06-10] MEDS ORDERED: IOHEXOL 350 MG/ML 10 ML VIAL (for RAD DIAG) IVCONTRAST ONE (17:41)
[2017-06-10] MEDS ORDERED: OSELTAMIVIR PHOSPHATE 75 MG CAP PO ONE (18:00)
--- NOTE | 2017-06-10 18:36 | RADRPT ---
EXAM DATE/TIME: 06/10/2017 17:37 This report includes an Addendum and supersedes previous reports for this exam. [facility] COMPARISON: No previous studies available for comparison. INDICATIONS : Abdominal and left flank pain. IV CONTRAST: 81 cc Omnipaque 350 (iohexol) IV ORAL CONTRAST: No oral contrast ingested. RADIATION DOSE: CTDIvol (mGy) MEDICAL HISTORY : Diabetes mellitus type 2. Cardiovascular disease Hypertension. SURGICAL HISTORY : None. ENCOUNTER: Initial ACUITY: 1 day PAIN SCALE: 7/10 LOCATION: abdomen TECHNIQUE: Volumetric scanning of the abdomen and pelvis was performed. Using automated exposure control and ad justment of the mA and/or kV according to patient size, radiation dose was kept as low as reasonably achievable to obtain optimal diagnostic quality images. DICOM format image data is available electro nically for review and comparison. FINDINGS: LOWER LUNGS: The visualized lower lungs are clear. LIVER: Homogeneous density without lesion. There is no dilation of the biliary tree. No calcified gallston es. SPLEEN: Normal size without lesion. PANCREAS: Within normal limits. KIDNEYS: 3 cm cyst in the inferior pole of the right kidney. Kidneys otherwise demonstrate symmetrical enhance ment without evidence for hydronephrosis. Subcentimeter cystic lesiond in the inferior right and post erior left mid kidney is too small to fully characterize. ADRENAL GLANDS: Small 1.2 cm left adrenal mass with indeterminate density. VASCULAR: There is no aortic aneurysm. BOWEL/MESENTERY: Appendix is visualized and appears unremarkable proximally. The distal appendix however is slightly d istended measuring up to 9 mm and fluid filled. No significant periappendiceal stranding. Bowel appea rs unremarkable without evidence for obstruction or significant bowel wall thickening. No free fluid or Tamiflu collection. ABDOMINAL WALL: Within normal limits. RETROPERITONEUM: There is no lymphadenopathy. BLADDER: No wall thickening or mass. REPRODUCTIVE: Within normal limits. INGUINAL: There is no lymphadenopathy or hernia. MUSCULOSKELETAL: Within normal limits for patient age. CONCLUSION: 1. Normal appearing proximal appendix. The distal appendix is slightly prominent measuring up to 9 mm and fluid filled. There is no significant periappendiceal inflammatory change. The findings are nons pecific and although unlikely, a developing distal appendicitis cannot be entirely excluded. 2. Otherwise, no acute CT adenopathy in the abdomen or pelvis. 3. 3 cm cyst in the inferior pole of the right kidney with additional subcentimeter cystic lesions wh ich are too small to fully characterize in both kidneys. Yonny Canales MD on June 10, 2017 at 18:29 Board Certified Radiologist. This report was verified electronically. ADDENDUM: The following was omitted from the original impression. 4. Small 1.2 cm left adrenal mass with indeterminate density. Consider adrenal mass protocol MRI exam ination for better characterization as clinically appropriate. Yonny Canales MD on June 10, 2017 at 19:27 Board Certified Radiologist. This report was verified electronically.
[2017-06-10] MEDS ORDERED: PIPERACIL-TAZO 3.375 GM PREMIX 50 ML IV ONE (19:15)
--- NOTE | 2017-06-10 19:18 | HHI.HP ---
HPI Service [facility] Primary Care Physician Unknown Admission Diagnosis influenza B, abdominal pain, rule out appendicitis Diagnoses: (1) Influenza B Diagnosis: Principal (2) Abdominal pain Diagnosis: Principal (3) CHALO (acute kidney injury) Diagnosis: Principal (4) DM (diabetes mellitus) Diagnosis: Principal Travel History International Travel<30 Days: No Contact w/Intl Traveler <30 Da: No Traveled to Known Affected Are: No History of Present Illness This is a 57 year old male w/ a PMH of HTN, Chronic Back Pain and DM who presented to the ER w/ complaints of abdominal pain, diarrhea and sore throat x1 day. Reports h/o Flu approx 1wk ago, s/p Zithro which he completed. Yesterday, developed sore throat, productive cough and diarrhea. C/o generalized weakness in addition to abdominal pain. Pain is constant, sharp, 6/ 10, radiates to flanks, no associated nausea/vomiting. On arrival, BP 127/59, HR 89, O2 sat 98% on RA, Temp 99.7. CBC essentially unremarkable except for platelets 146. Creatinine 1.42, producing 1.22 on 09/14/16. UA negative. +Flu B. CXR with no acute findings. CT Abd/Pelvis w/ normal proximal appendix, distal appendix slightly prominent, findings nonspecific however distal appendicitis cannot be excluded, small adrenal mass 1.[address] Florence consulted, will see in consultation. S/p Tamiflu and Zosyn in ER. Review of Systems Except as stated in HPI: all other systems reviewed are Neg ROS: 14 point review of systems otherwise negative. Past Family Social History Past Medical History PMH: HTN, Chronic Back Pain and DM Past Surgical History PAST SURGICAL HISTORY: None Allergies: Coded Allergies: No Known Allergies (Verified Allergy, Unknown, 06/10/17) Family History PAST FAMILY HISTORY: Reviewed. No h/o DM or CAD Social History PAST SOCIAL HISTORY: Negative for alcohol, tobacco or drugs. Physical Exam Vital Signs Vital Signs Date Time Temp Pulse Resp B/P (MAP) Pulse Ox O2 Delivery O2 Flow Rate FiO2 2/23/18 16:42 99 Room Air 06/10/17 16:42 77 17 121/67 (85) 99 Room Air 06/10/17 16:42 16 06/10/17 16:42 16 99 Room Air 06/10/17 13:54 99.7 89 18 127/59 (81) 98 Room Air Physical Exam PE: GENERAL: Middle-aged male in no acute distress. HEENT: PERRLA, EOMI. No scleral icterus or conjunctival pallor. No lid lag or facial droop. +pharyngeal erythema CARDIOVASCULAR: Regular rate and rhythm. No obvious murmurs to auscultation. No chest tenderness to palpation. RESPIRATORY: No obvious rhonchi or wheezing. Clear to auscultation. Breath sounds equal bilaterally. GASTROINTESTINAL: Abdomen soft, non-tender, nondistended. BS normal. MUSCULOSKELETAL: Extremities without clubbing, cyanosis, or edema. No obvious deformities. NEUROLOGICAL: Awake, alert and oriented x4. No focal neurologic deficits. Moving both upper and lower extremities spontaneously. Laboratory Laboratory Tests Test 06/10/17 14:40 06/10/17 14:42 White Blood Count 5.1 Red Blood Count 5.66 Hemoglobin 16.3 Hematocrit 48.6 Mean Corpuscular Volume 85.8 Mean Corpuscular Hemoglobin 28.8 Mean Corpuscular Hemoglobin Concent 33.6 Red Cell Distribution Width 13.4 Platelet Count 146 Mean Platelet Volume 10.0 Neutrophils (%) (Auto) 40.0 Lymphocytes (%) (Auto) 47.5 Monocytes (%) (Auto) 11.1 Eosinophils (%) (Auto) 0.7 Basophils (%) (Auto) 0.7 Neutrophils # (Auto) 2.0 Lymphocytes # (Auto) 2.4 Monocytes # (Auto) 0.6 Eosinophils # (Auto) 0.0 Basophils # (Auto) 0.0 CBC Comment DIFF FINAL Differential Comment Blood Urea Nitrogen 20 Creatinine 1.42 Random Glucose 151 Total Protein 8.3 Albumin 3.7 Calcium Level 8.8 Alkaline Phosphatase 62 Aspartate Amino Transf (AST/SGOT) 41 Alanine Aminotransferase (ALT/SGPT) 60 Total Bilirubin 0.5 Sodium Level 135 Potassium Level 4.5 Chloride Level 101 Carbon Dioxide Level 26.6 Anion Gap 7 Estimat Glomerular Filtration Rate 63 Lipase 116 Urine Color YELLOW Urine Turbidity HAZY Urine pH 5.5 Urine Specific [place] 1.029 Urine Protein 30 Urine Glucose (UA) NEG Urine Ketones NEG Urine Occult Blood NEG Urine Nitrite NEG Urine Bilirubin NEG Urine Urobilinogen LESS THAN 2.0 Urine Leukocyte Esterase NEG Urine WBC 2 Urine Squamous Epithelial Cells 1 Urine Hyaline Casts 110 Urine Mucus MOD Microscopic Urinalysis Comment CULT NOT INDICATED Date/Time Source Procedure Growth Status 06/10/17 17:00 Throat Group A Streptococcus Screen Pending Received Result Diagram: 06/10/17 1440 06/10/17 1440 Caprini VTE Risk Assessment Caprini VTE Risk Assessment: No/Low Risk (score <= 1) Caprini Risk Assessment Model Point Value = 1 Point Value = 2 Point Value = 3 Point Value = 5 Age 41-60 Minor surgery BMI > 25 kg/m2 Swollen legs Varicose veins or History of unexplained or recurrent spontaneous Oral contraceptives or hormone replacement Sepsis (< 1 month) Serious lung disease, including pneumonia (< 1 month) Abnormal pulmonary function Acute myocardial infarction Congestive heart failure (< 1 month) History of inflammatory bowel disease Medical patient at bed rest Age 61-74 Arthroscopic surgery Major open surgery (> 45 min) Laparoscopic surgery (> 45 min) Malignancy Confined to bed (> 72 hours) Immobilizing plaster cast Central venous access Age >= 75 History of VTE Family history of VTE Factor V Leiden Prothrombin [id number] Lupus anticoagulant Anticardiolipin antibodies Elevated serum homocysteine Heparin-induced thrombocytopenia Other congenital or acquired thrombophilia Stroke (< 1 month) Elective arthroplasty Hip, pelvis, or leg fracture Acute spinal cord injury (< 1 month) Prophylaxis Regimen Total Risk Factor Score Risk Level Prophylaxis Regimen 0-1 Low Early ambulation 2 Moderate Order ONE of the following: *Sequential Compression Device (SCD) *Heparin 5000 units SQ BID 3-4 Higher Order ONE of the following medications: *Heparin 5000 units SQ TID *Enoxaparin/Lovenox 40 mg SQ daily (WT < 150 kg, CrCl > 30 mL/min) *Enoxaparin/Lovenox 30 mg SQ daily (WT < 150 kg, CrCl > 10-29 mL/min) *Enoxaparin/Lovenox 30 mg SQ BID (WT < 150 kg, CrCl > 30 mL/min) AND/OR *Sequential Compression Device (SCD) 5 or more Highest Order ONE of the following medications: *Heparin 5000 units SQ TID (Preferred with Epidurals) *Enoxaparin/Lovenox 40 mg SQ daily (WT < 150 kg, CrCl > 30 mL/min) *Enoxaparin/Lovenox 30 mg SQ daily (WT < 150 kg, CrCl > 10-29 mL/min) *Enoxaparin/Lovenox 30 mg SQ BID (WT < 150 kg, CrCl > 30 mL/min) AND *Sequential Compression Device (SCD) Assessment and Plan Problem List: (1) Abdominal pain ICD Code: R10.9 - Unspecified abdominal pain Status: Acute (2) Influenza B ICD Code: J10.1 - Influenza due to other identified influenza virus with other respiratory manifestations Status: Acute (3) CHALO (acute kidney injury) ICD Code: N17.9 - Acute kidney failure, unspecified (4) DM (diabetes mellitus) ICD Code: E11.9 - Type 2 diabetes mellitus without complications Assessment and Plan A/P: 1. Abdominal Pain: R/o appendicitis. Acute onset of abdominal pain, no nausea /vomiting, +diarrhea. CT Abd/Pelvis w/ slightly prominent distal appendix, nonspecific however possible developing distal appendicitis, images reviewed by me. Dr. Florence consulted by ER physician, no emergent surgical intervention at this time, will evaluate in a.m. Diet as tolerated, IVF, analgesics/ antiemetics as needed, continue IV Abx. 2. CHALO: Creatinine 1.42, previously 1.22 on 09/14/16, likely secondary to dehydration. IVF, repeat labs in a.m. UA negative. 3. Flu: +Flu B, started on Tamiflu in ER, will continue, supportive treatment , IVF, Cepacol lozenges prn. 4. DM: Sliding scale w/ Accu-Cheks. Hold Metformin in light of renal insufficiency. 5. DVT Prophylaxis: SCD/Teds. 6. Social work for d/c planning as needed. 7. Case discussed w/ ER physician at length, labs/records/imaging reviewed by me. Problem Qualifiers (1) Abdominal pain: Qualified Codes: R10.33 - Periumbilical pain Frida Radford MD Jun 10, 2017 19:18
[2017-06-10] MEDS ORDERED: BISACODYL 10 MG SUPP RECTAL PRN (19:30)
[2017-06-10] MEDS ORDERED: ACETAMINOPHEN 325 MG TAB PO PRN (19:30)
[2017-06-10] MEDS ORDERED: MORPHINE SULFATE 2 MG/ML INJ IV PUSH PRN (19:30)
[2017-06-10] MEDS ORDERED: SENNOSIDES 8.6 MG TAB PO PRN (19:30)
[2017-06-10] MEDS ORDERED: DEXTROSE 50% IN WATER 50 ML VIAL(D50) IV PUSH PRN (19:30)
[2017-06-10] MEDS ORDERED: ONDANSETRON HCL 4 MG/2 ML VIAL IVP PRN (19:30)
[2017-06-10] MEDS ORDERED: SODIUM CHLORIDE 0.9% FLUSH 10 ML FLUSH IV FLUSH PRN (19:30)
[2017-06-10] MEDS ORDERED: LACTULOSE SYRUP 20 GM/30 ML CUP PO PRN (19:30)
[2017-06-10] MEDS ORDERED: GLUCAGON 1 MG/ML VIAL OTHER PRN (19:30)
[2017-06-10] MEDS ORDERED: MAGNESIUM HYDROXIDE SUSP 30 ML CUP PO PRN (19:30)
[2017-06-10] MEDS ORDERED: ACETAMINOPHEN/HYDROcodone 325 MG/5 MG TAB PO PRN (19:30)
[2017-06-10] MEDS ORDERED: BENZOCAINE-MENTHOL (SUGAR FREE) 15 MG-3.6 MG LOZENGE BUCCAL PRN (20:30)
[2017-06-10 20:47] VITALS: BP 110/69; PULSE 74; RESP 19; TEMP 99.5; O2SAT 95
[2017-06-10] MEDS: DOCUSATE SODIUM 50 MG/SENNA 8.6 MG TAB PO SCH (21:00)
[2017-06-10] MEDS: INSULIN ASPART SUPPLEMENTAL SCALE SQ SCH (21:00)
[2017-06-10 23:43] VITALS: BP 101/62; PULSE 69; RESP 16; TEMP 98.9; O2SAT 94
[2017-06-10 23:55] VITALS: BP 161/82; PULSE 92; RESP 19; TEMP 98.7; O2SAT 93
[2017-06-11] MEDS: PIPERACIL-TAZO 4.5 GM PREMIX 100 ML IV SCH ×3 (00:37→13:44)
[2017-06-11] MEDS: SODIUM CHLOR 0.9% 1000 ML INJ 1,000 ML IV SCH ×3 (00:38→05:42)
[2017-06-11] MEDS: SODIUM CHLORIDE 0.9% FLUSH 10 ML FLUSH IV FLUSH SCH ×2 (00:39→05:42)
[2017-06-11 03:31] VITALS: BP 107/64; PULSE 55; RESP 18; TEMP 98.7; O2SAT 94
[2017-06-11] MEDS: INSULIN ASPART SUPPLEMENTAL SCALE SQ SCH ×2 (08:00→12:00)
[2017-06-11 08:01] LABS: AUTOMATED NEUTROPHIL # 0.7 TH/MM3 (1.8-7.7); BASOPHIL % 0.6 % (0.0-2.0); EOSINOPHIL # 0.1 TH/MM3 (0-0.4); EOSINOPHIL % 2.2 % (0.0-4.0); HEMATOCRIT 45.1 % (39.0-51.0); HEMOGLOBIN 15.3 GM/DL (13.0-17.0); LYMPH % 67.2 % (9.0-44.0); LYMPHOCYTE # 2.4 TH/MM3 (1.0-4.8); MEAN CELL VOLUME 85.1 FL (80.0-100.0); MEAN CORPUSCULAR HEMOGLOBIN 28.8 PG (27.0-34.0); MEAN CORPUSCULAR HGB CONC 33.8 % (32.0-36.0); MEAN PLATELET VOLUME 9.7 FL (7.0-11.0); MONO % 11.3 % (0.0-8.0); MONOCYTE # 0.4 TH/MM3 (0-0.9); NEUT % 18.7 % (16.0-70.0); PLATELET COUNT 132 TH/MM3 (150-450); RED CELL DISTRIBUTION WIDTH 12.9 % (11.6-17.2); WHITE BLOOD COUNT 3.6 TH/MM3 (4.0-11.0)
[2017-06-11 08:21] VITALS: BP 110/60; PULSE 70; RESP 20; TEMP 98.2; O2SAT 96
[2017-06-11 08:39] LABS: ALBUMIN 2.9 GM/DL (3.4-5.0); ALKALINE PHOSPHATASE 50 U/L (45-117); ALT (GPT) 59 U/L (12-78); AST (GOT) 44 U/L (15-37); BICARBONATE 25.6 MEQ/L (21.0-32.0); BLOOD UREA NITROGEN 13 MG/DL (7-18); CALCIUM 7.9 MG/DL (8.5-10.1); CHLORIDE 104 MEQ/L (98-107); CREATININE 1.12 MG/DL (0.60-1.30); GLOMERULAR FILTRATION RATE 82 ML/MIN (>89); GLUCOSE,RANDOM 124 MG/DL (74-106); SODIUM (NA) 138 MEQ/L (136-145); TOTAL BILIRUBIN ADULT 0.7 MG/DL (0.2-1.0); TOTAL PROTEIN 6.9 GM/DL (6.4-8.2)
[2017-06-11] MEDS ORDERED: OSELTAMIVIR PHOSPHATE 75 MG CAP PO SCH (09:00)
[2017-06-11] MEDS: DOCUSATE SODIUM 50 MG/SENNA 8.6 MG TAB PO SCH (09:10)
[2017-06-11 09:39] LABS: ATYPICAL LYMPHOCYTES 13 % (0-0); BANDS 3 % (0-6); BASOPHILS 1 % (0-2); LYMPHOCYTES 50 % (9-44); MONOCYTES 14 % (0-8); NEUTROPHIL # MANUAL DIFF 0.7 TH/MM3 (1.8-7.7); POLYS (SEG NEUTROPHILS) 17 % (16-70)
--- NOTE | 2017-06-11 12:13 | HHI.PR ---
Subjective Subjective Notes He wants to eat he denies abdominal pain Objective Vitals/I&O Vital Signs Date Time Temp Pulse Resp B/P (MAP) Pulse Ox O2 Delivery O2 Flow Rate FiO2 06/11/17 08:21 98.2 70 20 110/60 (77) 96 06/10/17 16:42 Room Air Labs Laboratory Tests Test 06/10/17 14:40 06/10/17 14:42 06/11/17 06:50 White Blood Count 5.1 3.6 Red Blood Count 5.66 5.30 Hemoglobin 16.3 15.3 Hematocrit 48.6 45.1 Mean Corpuscular Volume 85.8 85.1 Mean Corpuscular Hemoglobin 28.8 28.8 Mean Corpuscular Hemoglobin Concent 33.6 33.8 Red Cell Distribution Width 13.4 12.9 Platelet Count 146 132 Mean Platelet Volume 10.0 9.7 Neutrophils (%) (Auto) 40.0 18.7 Lymphocytes (%) (Auto) 47.5 67.2 Monocytes (%) (Auto) 11.1 11.3 Eosinophils (%) (Auto) 0.7 2.2 Basophils (%) (Auto) 0.7 0.6 Neutrophils # (Auto) 2.0 0.7 Lymphocytes # (Auto) 2.4 2.4 Monocytes # (Auto) 0.6 0.4 Eosinophils # (Auto) 0.0 0.1 Basophils # (Auto) 0.0 0.0 CBC Comment DIFF FINAL AUTO DIFF Differential Comment FINAL DIFF MANUAL Blood Urea Nitrogen 20 13 Creatinine 1.42 1.12 Random Glucose 151 124 Total Protein 8.3 6.9 Albumin 3.7 2.9 Calcium Level 8.8 7.9 Alkaline Phosphatase 62 50 Aspartate Amino Transf (AST/SGOT) 41 44 Alanine Aminotransferase (ALT/SGPT) 60 59 Total Bilirubin 0.5 0.7 Sodium Level 135 138 Potassium Level 4.5 3.7 Chloride Level 101 104 Carbon Dioxide Level 26.6 25.6 Anion Gap 7 8 Estimat Glomerular Filtration Rate 63 82 Lipase 116 Urine Color YELLOW Urine Turbidity HAZY Urine pH 5.5 Urine Specific [place] 1.029 Urine Protein 30 Urine Glucose (UA) NEG Urine Ketones NEG Urine Occult Blood NEG Urine Nitrite NEG Urine Bilirubin NEG Urine Urobilinogen LESS THAN 2.0 Urine Leukocyte Esterase NEG Urine WBC 2 Urine Squamous Epithelial Cells 1 Urine Hyaline Casts 110 Urine Mucus MOD Microscopic Urinalysis Comment CULT NOT INDICATED Differential Total Cells Counted 100 Neutrophils % (Manual) 17 Band Neutrophils % 3 Lymphocytes % 50 Monocytes % 14 Eosinophils % 2 Basophils % 1 Neutrophils # (Manual) 0.7 Atypical Lymphocytes 13 Platelet Estimate LOW Platelet Morphology Comment NORMAL Date/Time Source Procedure Growth Status 06/10/17 17:00 Throat Group A Streptococcus Screen Pending Received Abdomen: Non-distended, Non-tender A/P Assessment and Plan 57-year-old -[place] gentleman with no abdominal pain and no evidence of appendicitis. General surgery will sign off. Sy Leiva MD Jun 11, 2017 12:13
--- NOTE | 2017-06-11 14:03 | HHI.PR ---
Subjective Remarks Follow up abdominal pain, influenza. Patient states that he feels much better today. Still with cough, but no dyspnea or chest pain. Abdominal pain has improved. Objective Vitals Vital Signs Date Time Temp Pulse Resp B/P (MAP) Pulse Ox O2 Delivery O2 Flow Rate FiO2 06/11/17 08:21 98.2 70 20 110/60 (77) 96 06/11/17 03:31 98.7 55 18 107/64 (78) 94 06/11/17 03:00 18 06/10/17 23:55 98.7 92 19 161/82 (108) 93 06/10/17 23:43 98.9 69 16 101/62 (75) 94 06/10/17 20:47 99.5 74 19 110/69 (83) 95 06/10/17 19:50 06/10/17 16:42 99 Room Air 06/10/17 16:42 77 17 121/67 (85) 99 Room Air 06/10/17 16:42 16 06/10/17 16:42 16 99 Room Air I/O 06/10/17 06/10/17 06/10/17 06/11/17 06/11/17 06/11/17 07:00 15:00 23:00 07:00 15:00 23:00 Intake Total 1050 ml 300 ml Balance 1050 ml 300 ml Intake Oral 300 ml IV Total 1050 ml Result Diagram: 06/11/17 0650 06/11/17 0650 Imaging Last Impressions Chest X-Ray 06/10/17 0000 Signed Impressions: Service Date/Time: Saturday, June 10, 2017 17:03 - CONCLUSION: The lungs are clear. Antonino Bryson MD Abdomen/Pelvis CT 06/10/17 0000 Signed Impressions: Service Date/Time: Saturday, June 10, 2017 17:37 - CONCLUSION: 1. Normal appearing proximal appendix. The distal appendix is slightly prominent measuring up to 9 mm and fluid filled. There is no significant periappendiceal inflammatory change. The findings are nonspecific and although unlikely, a developing distal appendicitis cannot be entirely excluded. 2. Otherwise, no acute CT adenopathy in the abdomen or pelvis. 3. 3 cm cyst in the inferior pole of the right kidney with additional subcentimeter cystic lesions which are too small to fully characterize in both kidneys. Yonny Canales MD ADDENDUM: The following was omitted from the original impression. 4. Small 1.2 cm left adrenal mass with indeterminate density. Consider adrenal mass protocol MRI examination for better characterization as clinically appropriate. Yonny Canales MD Objective Remarks General: No acute distress. Heart: Regular rate and rhythm. No murmur. Lungs: Clear to auscultation bilaterally. No wheezes, rales, or rhonchi. Breathing is nonlabored. Abdomen: Soft, nontender, nondistended. Extremities: No lower extremity edema. Psych: Alert and oriented. Procedures None Urinary Catheter: No Vascular Central Line Catheter: No A/P Problem List: (1) Abdominal pain ICD Code: R10.9 - Unspecified abdominal pain Status: Resolved (2) Influenza B ICD Code: J10.1 - Influenza due to other identified influenza virus with other respiratory manifestations Status: Acute (3) CHALO (acute kidney injury) ICD Code: N17.9 - Acute kidney failure, unspecified (4) DM (diabetes mellitus) ICD Code: E11.9 - Type 2 diabetes mellitus without complications Assessment and Plan 1. Abdominal pain: CT abdomen/pelvis shows slightly prominent distal appendix. Abdominal pain has resolved. Appreciate general surgery recommendations. Per general surgery, patient has no evidence of appendicitis. 2. Acute kidney injury: Likely secondary to dehydration. Improved with IV fluids. 3. Influenza B: Continue Tamiflu, supportive treatment. Stable on room air. 4. Diabetes mellitus: Monitor Accu-Cheks and cover with sliding scale insulin. Metformin on hold secondary to renal insufficiency. Diabetic diet. 5. DVT prophylaxis: SCDsSURYA. Discharge Planning Diet advanced. If patient tolerates diet, will discharge home in stable condition. Diabetic diet. Activity as tolerated. Problem Qualifiers (1) Abdominal pain: Qualified Codes: R10.33 - Periumbilical pain Yeison Ambriz MD Jun 11, 2017 14:03
[2017-06-11] MEDS ORDERED: OSEL75 PO (14:05)
--- NOTE | 2017-06-11 14:06 | HHI.DCPOC ---
Discharge Care Plan Diagnosis: (1) Abdominal pain (2) CHALO (acute kidney injury) (3) DM (diabetes mellitus) (4) Influenza B Goals to Promote Your Health * To prevent worsening of your condition and complications * To maintain your health at the optimal level Directions to Meet Your Goals Take your medications as prescribed Follow your dietary instruction Follow activity as directed Keep your appointments as scheduled Take your immunizations and boosters as scheduled If your symptoms worsen call your PCP, if no PCP go to Urgent Care Center or Emergency Room Smoking is Dangerous to Your Health. Avoid second hand smoke Call the 24-hour hour crisis hotline for domestic abuse at Yeison Ambriz MD Jun 11, 2017 14:06
--- NOTE | 2017-06-11 17:01 | MB ---
cc: GRACE RODRIGUEZ MD DATE OF CONSULTATION 06/10/17 HISTORY OF PRESENT ILLNESS The patient is a 57-year-old -[place] male with a history of hypertension, chronic back pain and diabetes who presented to the ER with complaints of abdominal pain and nausea since last , over one week ago. The patient had diarrhea times one day and had increasing abdominal pain and weakness with the pain. The patient had workup which demonstrates a question of a slightly prominent distal appendiceal tip. The patient has received Tamiflu and Zosyn in the ER and has completed a course of Zithromax. REVIEW OF SYSTEMS Negative except as indicated above. PAST MEDICAL HISTORY 1. Hypertension, 2. Chronic back pain 3. Diabetes. PAST SURGICAL HISTORY He has had no previous surgeries. ALLERGIES He has no known allergies. PHYSICAL EXAMINATION GENERAL: An obese -[place] male in no acute distress. VITAL SIGNS: BP 110/69, pulse 74, respirations 19, 95% saturation on room air, temperature 99.5. HEENT: Sclerae are anicteric. Pupils reactive. CHEST: Clear to auscultation. CARDIAC: Regular rate and rhythm without murmurs. ABDOMEN: Protuberant and nontender to even deep palpation. There are no peritoneal signs. Careful deep palpation in the right lower quadrant elicits no pain whatsoever. The patient reports that he has very minimal abdominal pain diffusely and has been present for the last day, since he began having diarrhea. Pulses are present. NEUROLOGIC: Exam is nonfocal. LABORATORY DATA WBCs of 5.1, platelets of 146,000, hemoglobin 116.3. The patient has lymphocytosis. Chemistries demonstrate BUN and creatinine of 20 and 1.42. Sodium is 135, potassium 4.5. Liver function tests slightly elevated AST of 41, ALT is 60, alk phos 62, total bilirubin 0.5. IMAGING STUDIES As reported above. ASSESSMENT Gastroenteritis with flu-like symptoms. I highly doubt appendicitis. With the patient's lymphocytosis, he likely has a viral gastroenteritis. Thrombocytopenia is slightly concerning and this needs to be monitored, although this could be due to his recent flu illness. The patient has been wearing a mask at home and reports no one else is sick at the house. My partner will see the patient tomorrow morning, but I anticipate that no surgical intervention will be required and that this is simply an incidental finding on CT scan. I have discussed this with the patient as well and he is agreeable to not have potentially unnecessary surgical procedure at this time. Thank you for this interesting consult. MD SAUD Rincon/ /12:46 PM /4:42 PM
== END 2017-06-11 18:28 | disposition home or self-care (01) ==
LOC: NEPD 13:52 → NEDA 19:13 → NEPGCP 19:49
PROVIDERS: ADMIT Family Medicine; ATTEND Family Medicine
DX: A08.4 Viral intestinal infection, unspecified (principal); J10.1 Influenza due to other identified influenza virus with other respiratory manifestations; N17.9 Acute kidney failure, unspecified; E86.0 Dehydration; D69.6 Thrombocytopenia, unspecified; D72.820 Lymphocytosis (symptomatic); I10 Essential (primary) hypertension; E11.9 Type 2 diabetes mellitus without complications; E27.9 Disorder of adrenal gland, unspecified; E78.00 Pure hypercholesterolemia, unspecified; Z79.84 Long term (current) use of oral hypoglycemic drugs
CPT/HCPCS: 71045; 74177; 80053; 81001; 82948; 83690; 85007; 85025; 85027; 87081; 87804; 87880; 96361; 96365; 96366; 99285; G0378; J2543; J7030; Q9967

== ENCOUNTER 2017-07-02 05:20 | Emergency (ER) | payer MEDICARE, MEDICAID ==
[~2017-07-02] VITALS: Ht 172.7 cm; Wt 102.0 kg
[~2017-07-02 05:20] MED LIST changes: -AMOX500T PO; -METF1000 PO; +OSEL75 PO
[2017-07-02 05:27] VITALS: BP 121/78; PULSE 69; RESP 18; TEMP 98.6; O2SAT 98
[2017-07-02] MEDS ORDERED: AZIT250T3 PO (05:49)
[2017-07-02] MEDS ORDERED: BENZ100 PO (05:49)
--- NOTE | 2017-07-02 05:51 | PD ---
HPI Chief Complaint: ENT Complaint Time Seen by Provider: 05:48 Travel History International Travel<30 days: No Contact w/Intl Traveler<30days: No Traveled to known affect area: No History of Present Illness HPI 57-year-old male presents for evaluation of cough and sore throat. Symptoms started 3-4 weeks ago. The cough is productive with yellow sputum. Denies any fevers, chills. He has been using [id number] cough and cold medications. No other complaints. PFSH Past Medical History Arthritis: Yes Asthma: No Blood Disorders: No Anxiety: No Depression: No Heart Rhythm Problems: No Cancer: No Cardiovascular Problems: No High Cholesterol: No Chemotherapy: No Chest Pain: No Congestive Heart Failure: No COPD: No Diabetes: Yes Patient Takes Glucophage: Yes (07/01/2017 0900) Diminished Hearing: No Endocrine: Yes (diabetic) Gastrointestinal Disorders: No GERD: No Glaucoma: No Genitourinary: No Hiatal Hernia: No Heparin Induced Thrombocytopen: No Hypertension: Yes Immune Disorder: No Implanted Vascular Access Dvce: No Musculoskeletal: No Neurologic: No Psychiatric: No Reproductive: No Respiratory: Yes (flu symptoms) Myocardial Infarction: No Radiation Therapy: No Sickle Cell Disease: No Sleep Apnea: No Thyroid Disease: No Ulcer: No Tetanus Vaccination: < 5 Years Influenza Vaccination: No PNEUMOCCOCAL Vaccine (Year): 1 Past Surgical History Abdominal Surgery: No AICD: No Appendectomy: No Arteriovenous Shunt: No Cardiac Surgery: No Ear Surgery: No Endocrine Surgery: No Eye Surgery: No Genitourinary Surgery: No Gynecologic Surgery: No Insulin Pump: No Joint Replacement: No Neurologic Surgery: No Oral Surgery: No Pacemaker: No Thoracic Surgery: No Other Surgery: Yes (arthroscopic surgery right knee) Social History Alcohol Use: No Tobacco Use: No Substance Use: No Allergies-Medications (Allergen,Severity, Reaction): Coded Allergies: No Known Allergies (Verified Allergy, Unknown, 07/02/17) Reported Meds & Prescriptions Reported Meds & Active Scripts Active Tessalon Perles (Benzonatate) 100 Mg Cap 200 Mg PO TID PRN Azithromycin 250 Mg Tab 250 Mg PO DIRECTED Take 2 tabs (500 mg) on day 1 then 1 tab daily x 4 days. Tamiflu (Oseltamivir Phosphate) 75 Mg Cap 75 Mg PO BID Reported Lisinopril 5 Mg Tab 5 Mg PO DAILY Glipizide 5 Mg Tab 5 Mg PO DAILY Take 30 minutes before a meal Review of Systems Except as stated in HPI: all other systems reviewed are Neg Physical Exam Narrative GENERAL: Well-nourished male in no acute distress SKIN: Warm and dry. HEAD: Atraumatic. Normocephalic. EYES: Pupils equal and round. No scleral icterus. No injection or drainage. ENT: No nasal bleeding or discharge. Mucous membranes pink and moist. NECK: Trachea midline. No JVD. CARDIOVASCULAR: Regular rate and rhythm. No murmur appreciated. RESPIRATORY: No accessory muscle use. Clear to auscultation. Breath sounds equal bilaterally. Data Data Last Documented VS Vital Signs Date Time Temp Pulse Resp B/P (MAP) Pulse Ox O2 Delivery O2 Flow Rate FiO2 07/02/17 05:27 98.6 69 18 121/78 (92) 98 MDM Medical Decision Making Medical Screen Exam Complete: Yes Emergency Medical Condition: Yes Medical Record Reviewed: Yes Differential Diagnosis Bronchitis, pneumonia, pharyngitis Narrative Course He is being discharged with azithromycin and Tessalon. Diagnosis Primary Impression: Bronchitis Additional Instructions: Follow-up with primary care physician, medication as prescribed, return for any emergent medical conditions. Med/Other Pt SpecificInfo: Prescription(s) given Scripts Benzonatate (Tessalon Perles) 100 Mg Cap 200 MG PO TID Y for COUGH, #30 CAP 0 Refills Prov: Oneal Almaraz MD 07/02/17 Azithromycin (Azithromycin) 250 Mg Tab 250 MG PO DIRECTED for Infection, #6 TAB 0 Refills Take 2 tabs (500 mg) on day 1 then 1 tab daily x 4 days. Prov: Oneal Almaraz MD 07/02/17 Disposition: 01 DISCHARGE HOME Condition: Stable Daryl Rivera Jul 02, 2017 05:51
== END 2017-07-02 06:14 | disposition home or self-care (01) ==
LOC: NEPD 05:20
DX: J40 Bronchitis, not specified as acute or chronic (principal); E11.9 Type 2 diabetes mellitus without complications; I10 Essential (primary) hypertension; M19.90 Unspecified osteoarthritis, unspecified site
CPT/HCPCS: 99283

== ENCOUNTER 2017-07-14 21:09 | Emergency (ER) | payer MEDICARE, MEDICAID ==
[~2017-07-14 21:09] MED LIST changes: +AZIT250T3 PO; +BENZ100 PO
== END 2017-07-14 21:27 | disposition left against medical advice (07) ==
LOC: NED 21:09
DX: R09.89 Other specified symptoms and signs involving the circulatory and respiratory systems (principal); Z53.21 Procedure and treatment not carried out due to patient leaving prior to being seen by health care provider
CPT/HCPCS: 99281

== ENCOUNTER 2017-07-16 05:25 | Emergency (ER) | payer MEDICARE, MEDICAID ==
[~2017-07-16] VITALS: Ht 172.7 cm; Wt 108.5 kg
[2017-07-16 05:28] VITALS: BP 121/74; PULSE 75; RESP 18; TEMP 97.6; O2SAT 99
--- NOTE | 2017-07-16 05:53 | PD ---
HPI Chief Complaint: Chest Pain Time Seen by Provider: 05:40 Travel History International Travel<30 days: No Contact w/Intl Traveler<30days: No Traveled to known affect area: No History of Present Illness HPI 57-year-old male complains of chest pain, acid reflux, burning sensation of the throat. Patient states that his symptoms started 4 days ago. Patient states that the chest pains is sharp burning pain intermittent pain across anterior chest. Patient denies any pain radiation. Patient denies palpitation or diaphoresis. Patient has history of hypertension, diabetes. Patient denies history of hyperlipidemia. Patient quit smoking in the past. PFSH Past Medical History Arthritis: Yes Asthma: No Blood Disorders: No Anxiety: No Depression: No Heart Rhythm Problems: No Cancer: No Cardiovascular Problems: Yes (HTN) High Cholesterol: No Chemotherapy: No Chest Pain: No Congestive Heart Failure: No COPD: No Diabetes: Yes Patient Takes Glucophage: Yes (Glipizide) Diminished Hearing: No Endocrine: Yes (diabetic) Gastrointestinal Disorders: No GERD: No Glaucoma: No Genitourinary: No Hiatal Hernia: No Heparin Induced Thrombocytopen: No Hypertension: Yes Immune Disorder: No Implanted Vascular Access Dvce: No Musculoskeletal: No Neurologic: No Psychiatric: No Reproductive: No Respiratory: Yes (flu symptoms) Myocardial Infarction: No Radiation Therapy: No Sickle Cell Disease: No Sleep Apnea: No Thyroid Disease: No Ulcer: No Tetanus Vaccination: < 5 Years Influenza Vaccination: No PNEUMOCCOCAL Vaccine (Year): 1 Past Surgical History Abdominal Surgery: No AICD: No Appendectomy: No Arteriovenous Shunt: No Cardiac Surgery: No Ear Surgery: No Endocrine Surgery: No Eye Surgery: No Genitourinary Surgery: No Gynecologic Surgery: No Insulin Pump: No Joint Replacement: No Neurologic Surgery: No Oral Surgery: No Pacemaker: No Thoracic Surgery: No Other Surgery: Yes (arthroscopic surgery right knee) Social History Alcohol Use: No Tobacco Use: No Substance Use: No Allergies-Medications (Allergen,Severity, Reaction): Coded Allergies: No Known Allergies (Verified Allergy, Unknown, 07/02/17) Reported Meds & Prescriptions Reported Meds & Active Scripts Active Tessalon Perles (Benzonatate) 100 Mg Cap 200 Mg PO TID PRN Azithromycin 250 Mg Tab 250 Mg PO DIRECTED Take 2 tabs (500 mg) on day 1 then 1 tab daily x 4 days. Tamiflu (Oseltamivir Phosphate) 75 Mg Cap 75 Mg PO BID Reported Lisinopril 5 Mg Tab 5 Mg PO DAILY Glipizide 5 Mg Tab 5 Mg PO DAILY Take 30 minutes before a meal Review of Systems General / Constitutional: No: Fever Eyes: No: Visual changes HENT: No: Headaches Cardiovascular: Positive: Chest Pain or Discomfort Respiratory: No: Shortness of Breath Gastrointestinal: No: Abdominal Pain Genitourinary: No: Dysuria Musculoskeletal: No: Pain Skin: No Rash Neurologic: No: Weakness Psychiatric: No: Depression Endocrine: No: Polydipsia Hematologic/Lymphatic: No: Easy Bruising Physical Exam Narrative GENERAL: Well-nourished, well-developed patient. SKIN: Focused skin assessment warm/dry. HEAD: Normocephalic. EYES: No scleral icterus. No injection or drainage. NECK: Supple, trachea midline. No JVD or lymphadenopathy. CARDIOVASCULAR: Regular rate and rhythm without murmurs, gallops, or rubs. RESPIRATORY: Breath sounds equal bilaterally. No accessory muscle use. GASTROINTESTINAL: Abdomen soft, non-tender, nondistended. MUSCULOSKELETAL: No cyanosis, or edema. BACK: Nontender without obvious deformity. No CVA tenderness. Neurologic exam normal. Data Data Last Documented VS Vital Signs Date Time Temp Pulse Resp B/P (MAP) Pulse Ox O2 Delivery O2 Flow Rate FiO2 07/16/17 05:28 97.6 75 18 121/74 (90) 99 Orders Orders Electrocardiogram (07/16/17 05:46) Complete Blood Count With Diff (07/16/17 05:46) Comprehensive Metabolic Panel (07/16/17 05:46) Troponin I (07/16/17 05:46) Lipase (07/16/17 05:46) Chest, Single Ap (07/16/17 05:46) Iv Access Insert/Monitor (07/16/17 05:46) Ecg Monitoring (07/16/17 05:46) Oximetry (07/16/17 05:46) Pantoprazole (Protonix) (07/16/17 06:00) Al-Mag Hy-Si 40-40-4 Mg/Ml Liq (Mag-Al P (07/16/17 06:00) Labs Laboratory Tests Test 07/16/17 05:50 White Blood Count 5.8 TH/MM3 Red Blood Count 5.49 MIL/MM3 Hemoglobin 15.8 GM/DL Hematocrit 46.8 % Mean Corpuscular Volume 85.1 FL Mean Corpuscular Hemoglobin 28.8 PG Mean Corpuscular Hemoglobin Concent 33.8 % Red Cell Distribution Width 13.8 % Platelet Count 192 TH/MM3 Mean Platelet Volume 9.2 FL Neutrophils (%) (Auto) 40.1 % Lymphocytes (%) (Auto) 43.0 % Monocytes (%) (Auto) 11.7 % Eosinophils (%) (Auto) 4.1 % Basophils (%) (Auto) 1.1 % Neutrophils # (Auto) 2.3 TH/MM3 Lymphocytes # (Auto) 2.5 TH/MM3 Monocytes # (Auto) 0.7 TH/MM3 Eosinophils # (Auto) 0.2 TH/MM3 Basophils # (Auto) 0.1 TH/MM3 CBC Comment DIFF FINAL Differential Comment Blood Urea Nitrogen 16 MG/DL Creatinine 1.22 MG/DL Random Glucose 290 MG/DL Total Protein 7.7 GM/DL Albumin 3.6 GM/DL Calcium Level 8.7 MG/DL Alkaline Phosphatase 65 U/L Aspartate Amino Transf (AST/SGOT) 30 U/L Alanine Aminotransferase (ALT/SGPT) 51 U/L Total Bilirubin 0.5 MG/DL Sodium Level 136 MEQ/L Potassium Level 4.1 MEQ/L Chloride Level 104 MEQ/L Carbon Dioxide Level 25.2 MEQ/L Anion Gap 7 MEQ/L Estimat Glomerular Filtration Rate 75 ML/MIN Troponin I LESS THAN 0.02 NG/ML Lipase 104 U/L MDM Medical Decision Making Medical Screen Exam Complete: Yes Emergency Medical Condition: Yes Interpretation(s) Last Impressions Chest X-Ray 07/16/17 0546 Signed Impressions: Service Date/Time: Sunday, July 16, 2017 05:57 - CONCLUSION: Normal examination. Thanh Sanchez MD 6:51 AM. CBC within normal limits. CMP with glucose of 290. Cardiac enzymes are normal. Differential Diagnosis Differential diagnosis including GERD, gastritis, esophagitis, angina, IN, PE, pneumothorax. Narrative Course 57-year-old male complains of chest pain and burning sensation in the back of the throat. Diagnosis Primary Impression: Atypical chest pain Additional Impression: GERD (gastroesophageal reflux disease) Qualified Codes: K21.9 - Gastro-esophageal reflux disease without esophagitis Patient Instructions: General Instructions Additional Instructions: Protonix as directed. Follow-up with personal physician and manager loan. Return if worse. Med/Other Pt SpecificInfo: Prescription(s) given Scripts Pantoprazole (Protonix) 40 Mg Tab 40 MG PO DAILY for Reflux, #30 TAB 0 Refills Prov: Carlos Meyers MD 07/16/17 Disposition: 01 DISCHARGE HOME Condition: Stable Carlos Meyers MD Jul 16, 2017 05:53
[2017-07-16] MEDS ORDERED: ALUMINUM/MAGNESIUM/SIMETH 30 ML CUP PO ONE (06:00)
[2017-07-16] MEDS ORDERED: PANTOPRAZOLE SOD 40 MG DELAYED RELEASE TAB PO ONE (06:00)
[2017-07-16 06:02] LABS: AUTOMATED NEUTROPHIL # 2.3 TH/MM3 (1.8-7.7); BASOPHIL # 0.1 TH/MM3 (0-0.2); BASOPHIL % 1.1 % (0.0-2.0); EOSINOPHIL # 0.2 TH/MM3 (0-0.4); EOSINOPHIL % 4.1 % (0.0-4.0); HEMATOCRIT 46.8 % (39.0-51.0); HEMOGLOBIN 15.8 GM/DL (13.0-17.0); LYMPHOCYTE # 2.5 TH/MM3 (1.0-4.8); MEAN CELL VOLUME 85.1 FL (80.0-100.0); MEAN CORPUSCULAR HEMOGLOBIN 28.8 PG (27.0-34.0); MEAN CORPUSCULAR HGB CONC 33.8 % (32.0-36.0); MEAN PLATELET VOLUME 9.2 FL (7.0-11.0); MONO % 11.7 % (0.0-8.0); MONOCYTE # 0.7 TH/MM3 (0-0.9); NEUT % 40.1 % (16.0-70.0); PLATELET COUNT 192 TH/MM3 (150-450); RED BLOOD COUNT 5.49 MIL/MM3 (4.50-5.90); RED CELL DISTRIBUTION WIDTH 13.8 % (11.6-17.2); WHITE BLOOD COUNT 5.8 TH/MM3 (4.0-11.0)
--- NOTE | 2017-07-16 06:19 | RADRPT ---
EXAM DATE/TIME: 07/16/2017 05:57 [facility] COMPARISON: CHEST SINGLE AP, June 10, 2017, 17:03. INDICATIONS : Chest pain. Sharp pain near heart. MEDICAL HISTORY : Diabetes mellitus type 2. Cardiovascular disease Hypertension. SURGICAL HISTORY : None. ENCOUNTER: Initial ACUITY: 4 - 6 days PAIN SCORE: 5/10 LOCATION: Bilateral chest FINDINGS: A single view of the chest demonstrates the lungs to be symmetrically aerated without evidence of mas s, infiltrate or effusion. The cardiomediastinal contours are unremarkable. Osseous structures are intact. CONCLUSION: Normal examination. Thanh Sanchez MD on July 16, 2017 at 6:17 Board Certified Radiologist. This report was verified electronically.
[2017-07-16 06:33] LABS: ALBUMIN 3.6 GM/DL (3.4-5.0); AST (GOT) 30 U/L (15-37); BICARBONATE 25.2 MEQ/L (21.0-32.0); BLOOD UREA NITROGEN 16 MG/DL (7-18); CALCIUM 8.7 MG/DL (8.5-10.1); CHLORIDE 104 MEQ/L (98-107); CREATININE 1.22 MG/DL (0.60-1.30); GLOMERULAR FILTRATION RATE 75 ML/MIN (>89); GLUCOSE,RANDOM 290 MG/DL (74-106); SODIUM (NA) 136 MEQ/L (136-145)
[2017-07-16 06:34] LABS: ALT (GPT) 51 U/L (12-78)
[2017-07-16 06:38] LABS: ALKALINE PHOSPHATASE 65 U/L (45-117); TOTAL BILIRUBIN ADULT 0.5 MG/DL (0.2-1.0); TOTAL PROTEIN 7.7 GM/DL (6.4-8.2); TROPONIN I LESS THAN 0.02 NG/ML (0.02-0.05)
[2017-07-16] MEDS ORDERED: PROT40TA PO (06:55)
[2017-07-16 07:15] VITALS: BP 124/79
--- NOTE | 2017-07-16 14:40 | EKG ---
Date Performed: 07/16/2017 Time Performed: 05:52:15 PTAGE: 57 years EKG: Sinus rhythm NORMAL ECG Since PREVIOUS TRACING , no significant change noted PREVIOUS TRACIN09/14/2016 10.55 DOCTOR: Sy Cuello Interpretating Date/Time 07/16/2017 14:38:21
== END 2017-07-16 07:16 | disposition home or self-care (01) ==
LOC: NEPC 05:25
DX: R07.89 Other chest pain (principal); K21.9 Gastro-esophageal reflux disease without esophagitis; I10 Essential (primary) hypertension; E11.9 Type 2 diabetes mellitus without complications; M19.90 Unspecified osteoarthritis, unspecified site; Z87.891 Personal history of nicotine dependence
CPT/HCPCS: 71045; 80053; 83690; 84484; 85025; 93005; 99285

== ENCOUNTER 2017-09-25 02:27 | Observation (INO) | payer MEDICARE, MEDICAID ==
[2017-09-25] VITALS (13 sets, daily range): BP systolic 99–143; BP diastolic 60–81; PULSE 60–100; RESP 16–20; TEMP 96.1–98; O2SAT 95–100
[~2017-09-25] VITALS: Ht 172.7 cm; Wt 100.0 kg
[~2017-09-25 02:27] MED LIST changes: +PROT40TA PO
[2017-09-25] MEDS ORDERED: METF500T PO ×2 (02:42→12:58)
--- NOTE | 2017-09-25 02:55 | PD ---
HPI Chief Complaint: Chest Pain Time Seen by Provider: 02:44 Travel History International Travel<30 days: No Contact w/Intl Traveler<30days: No Traveled to known affect area: No History of Present Illness HPI Patient is a 57-year-old male who presents the emergency room for evaluation of chest pain. Patient reports that he ate a hamburger that tonight for dinner, reports that around 6:30 PM tonight, and began to have chest pain. Patient reports that the chest pain was due to acid reflux, he did take Maalox with no relief of symptoms. Patient reports that he can continue have a left-sided chest pain which radiates to his back and "kind of felt sharp and stabbing but also pressure at the same time". Patient reports that he has been feeling shortness of breath with this chest pain, reports that he has been feeling nausea with no vomiting. Reports that he does have history of diabetes, no history of ACS or CT, he has not had chest pain like this in the past. Patient reports that nothing makes his chest pain better or worse, patient does not see a legal administrative assistant as an outpatient. PFSH Past Medical History Arthritis: Yes Asthma: No Blood Disorders: No Anxiety: No Depression: No Heart Rhythm Problems: No Cancer: No Cardiovascular Problems: Yes (HTN) High Cholesterol: No Chemotherapy: No Chest Pain: No Congestive Heart Failure: No COPD: No Diabetes: Yes Patient Takes Glucophage: Yes (09/24/2017 0800) Diminished Hearing: No Endocrine: Yes (diabetic) Gastrointestinal Disorders: No GERD: No Glaucoma: No Genitourinary: No Hiatal Hernia: No Heparin Induced Thrombocytopen: No Hypertension: Yes Immune Disorder: No Implanted Vascular Access Dvce: No Musculoskeletal: No Neurologic: No Psychiatric: No Reproductive: No Respiratory: Yes (flu symptoms) Myocardial Infarction: No Radiation Therapy: No Sickle Cell Disease: No Sleep Apnea: No Thyroid Disease: No Ulcer: No Tetanus Vaccination: < 5 Years Influenza Vaccination: No PNEUMOCCOCAL Vaccine (Year): 1 Past Surgical History Abdominal Surgery: No AICD: No Appendectomy: No Arteriovenous Shunt: No Cardiac Surgery: No Ear Surgery: No Endocrine Surgery: No Eye Surgery: No Genitourinary Surgery: No Gynecologic Surgery: No Insulin Pump: No Joint Replacement: No Neurologic Surgery: No Oral Surgery: No Pacemaker: No Thoracic Surgery: No Other Surgery: Yes (arthroscopic surgery right knee) Social History Alcohol Use: No Tobacco Use: No Substance Use: No Allergies-Medications (Allergen,Severity, Reaction): Coded Allergies: No Known Allergies (Verified Allergy, Unknown, 09/25/17) Reported Meds & Prescriptions Reported Meds & Active Scripts Active Reported Metformin (Metformin HCl) 500 Mg Tab 500 Mg PO DAILY With a meal Lisinopril 5 Mg Tab 5 Mg PO DAILY Glipizide 5 Mg Tab 5 Mg PO DAILY Take 30 minutes before a meal Review of Systems ROS Limitations: Clinical Condition Cardiovascular: Positive: Chest Pain or Discomfort, Diaphoresis Respiratory: Positive: Shortness of Breath Physical Exam Narrative GENERAL: Mild distress SKIN: Focused skin assessment warm/dry. HEAD: Atraumatic. Normocephalic. EYES: Pupils equal and round. No scleral icterus. No injection or drainage. ENT: No nasal bleeding or discharge. Mucous membranes pink and moist. NECK: Trachea midline. No JVD. CARDIOVASCULAR: Regular rate and rhythm. No murmur appreciated. RESPIRATORY: No accessory muscle use. Clear to auscultation. Breath sounds equal bilaterally. GASTROINTESTINAL: Abdomen soft, non-tender, nondistended. Hepatic and splenic margins not palpable. MUSCULOSKELETAL: No obvious deformities. No clubbing. No cyanosis. No edema. NEUROLOGICAL: Awake and alert. No obvious cranial nerve deficits. Motor grossly within normal limits. Normal speech. PSYCHIATRIC: Appropriate mood and affect; insight and judgment normal. Data Data Last Documented VS Vital Signs Date Time Temp Pulse Resp B/P (MAP) Pulse Ox O2 Delivery O2 Flow Rate FiO2 09/25/17 04:41 64 16 104/62 (76) 96 Room Air 09/25/17 02:29 97.6 Orders Orders Electrocardiogram (09/25/17 ) Electrocardiogram (09/25/17 02:48) B-Type Natriuretic Peptide (09/25/17 02:48) Ckmb (Isoenzyme) Profile (09/25/17 02:48) Complete Blood Count With Diff (09/25/17 02:48) Comprehensive Metabolic Panel (09/25/17 02:48) D-Dimer (09/25/17 02:48) Magnesium (Mg) (09/25/17 02:48) Prothrombin Time / Inr (Pt) (09/25/17 02:48) Act Partial Throm Time (Ptt) (09/25/17 02:48) Troponin I (09/25/17 02:48) Chest, Single Ap (09/25/17 02:48) Ecg Monitoring (09/25/17 02:48) Bilateral Bp Monitoring (09/25/17 02:48) Iv Access Insert/Monitor (09/25/17 02:48) Oximetry (09/25/17 02:48) Sodium Chloride 0.9% Flush (Ns Flush) (09/25/17 03:00) Cta Thor Abd Aorta W Iv C W3d (09/25/17 02:48) Aspirin Chew (Aspirin Chew) (09/25/17 03:00) Nitroglycerin Sl (Nitrostat Sl) (09/25/17 03:00) CKMB (09/25/17 02:54) CKMB% (09/25/17 02:54) Iohexol 350 Inj (Omnipaque 350 Inj) (09/25/17 05:22) Labs Laboratory Tests Test 09/25/17 02:54 White Blood Count 6.3 TH/MM3 Red Blood Count 5.70 MIL/MM3 Hemoglobin 16.4 GM/DL Hematocrit 48.4 % Mean Corpuscular Volume 84.9 FL Mean Corpuscular Hemoglobin 28.8 PG Mean Corpuscular Hemoglobin Concent 34.0 % Red Cell Distribution Width 13.0 % Platelet Count 179 TH/MM3 Mean Platelet Volume 10.1 FL Neutrophils (%) (Auto) 34.9 % Lymphocytes (%) (Auto) 48.6 % Monocytes (%) (Auto) 10.1 % Eosinophils (%) (Auto) 5.3 % Basophils (%) (Auto) 1.1 % Neutrophils # (Auto) 2.2 TH/MM3 Lymphocytes # (Auto) 3.1 TH/MM3 Monocytes # (Auto) 0.6 TH/MM3 Eosinophils # (Auto) 0.3 TH/MM3 Basophils # (Auto) 0.1 TH/MM3 CBC Comment DIFF FINAL Differential Comment Prothrombin Time 10.6 SEC Prothromb Time International Ratio 1.0 RATIO Activated Partial Thromboplast Time 24.2 SEC D-Dimer Quantitative (PE/DVT) 0.22 MG/L FEU Blood Urea Nitrogen 19 MG/DL Creatinine 1.21 MG/DL Random Glucose 255 MG/DL Total Protein 8.3 GM/DL Albumin 3.7 GM/DL Calcium Level 8.8 MG/DL Magnesium Level 2.0 MG/DL Alkaline Phosphatase 65 U/L Aspartate Amino Transf (AST/SGOT) 48 U/L Alanine Aminotransferase (ALT/SGPT) 41 U/L Total Bilirubin 0.6 MG/DL Sodium Level 135 MEQ/L Potassium Level 5.1 MEQ/L Chloride Level 101 MEQ/L Carbon Dioxide Level 24.9 MEQ/L Anion Gap 9 MEQ/L Estimat Glomerular Filtration Rate 75 ML/MIN Total Creatine Kinase 352 U/L Creatine Kinase MB 2.9 NG/ML Creatine Kinase MB % 0.8 % Troponin I LESS THAN 0.02 NG/ML B-Type Natriuretic Peptide 6 PG/ML MDM Medical Decision Making Medical Screen Exam Complete: Yes Emergency Medical Condition: Yes Medical Record Reviewed: Yes Interpretation(s) EKG at 0140: Normal sinus rhythm at 64 bpm, QT/QTc 371/381, there is slight ST segment elevations in the inferior leads, it is similar to previous EKGs. Vital Signs Date Time Temp Pulse Resp B/P (MAP) Pulse Ox O2 Delivery O2 Flow Rate FiO2 09/25/17 02:51 65 119/78 (92) 120/81 (94) 09/25/17 02:44 71 18 119/78 (92) 98 Room Air 09/25/17 02:29 97.6 64 18 121/80 (94) 100 Differential Diagnosis ACS, arrhythmia, aortic dissection, PE, GERD Narrative Course During the course of the patients emergency department visit, the patients history, examination, and differential diagnosis were reviewed with the patient. The patient was placed on a regional retail sales manager with oximetry and frequent blood pressure monitoring. The patient had an IV access obtained and blood work sent for analysis. The patient was initially provided aspirin as well as sl nitro The patients laboratory studies were reviewed and remarkable for Laboratory Tests Test 09/25/17 02:54 White Blood Count 6.3 TH/MM3 (4.0-11.0) Red Blood Count 5.70 MIL/MM3 (4.50-5.90) Hemoglobin 16.4 GM/DL (13.0-17.0) Hematocrit 48.4 % (39.0-51.0) Mean Corpuscular Volume 84.9 FL (80.0-100.0) Mean Corpuscular Hemoglobin 28.8 PG (27.0-34.0) Mean Corpuscular Hemoglobin Concent 34.0 % (32.0-36.0) Red Cell Distribution Width 13.0 % (11.6-17.2) Platelet Count 179 TH/MM3 (150-450) Mean Platelet Volume 10.1 FL (7.0-11.0) Neutrophils (%) (Auto) 34.9 % (16.0-70.0) Lymphocytes (%) (Auto) 48.6 % (9.0-44.0) Monocytes (%) (Auto) 10.1 % (0.0-8.0) Eosinophils (%) (Auto) 5.3 % (0.0-4.0) Basophils (%) (Auto) 1.1 % (0.0-2.0) Neutrophils # (Auto) 2.2 TH/MM3 (1.8-7.7) Lymphocytes # (Auto) 3.1 TH/MM3 (1.0-4.8) Monocytes # (Auto) 0.6 TH/MM3 (0-0.9) Eosinophils # (Auto) 0.3 TH/MM3 (0-0.4) Basophils # (Auto) 0.1 TH/MM3 (0-0.2) CBC Comment DIFF FINAL Differential Comment Prothrombin Time 10.6 SEC (9.8-11.6) Prothromb Time International Ratio 1.0 RATIO Activated Partial Thromboplast Time 24.2 SEC (24.3-30.1) D-Dimer Quantitative (PE/DVT) 0.22 MG/L FEU (0.00-0.50) Blood Urea Nitrogen 19 MG/DL (7-18) Creatinine 1.21 MG/DL (0.60-1.30) Random Glucose 255 MG/DL (74-106) Total Protein 8.3 GM/DL (6.4-8.2) Albumin 3.7 GM/DL (3.4-5.0) Calcium Level 8.8 MG/DL (8.5-10.1) Magnesium Level 2.0 MG/DL (1.5-2.5) Alkaline Phosphatase 65 U/L (45-117) Aspartate Amino Transf (AST/SGOT) 48 U/L (15-37) Alanine Aminotransferase (ALT/SGPT) 41 U/L (12-78) Total Bilirubin 0.6 MG/DL (0.2-1.0) Sodium Level 135 MEQ/L (136-145) Potassium Level 5.1 MEQ/L (3.5-5.1) Chloride Level 101 MEQ/L (98-107) Carbon Dioxide Level 24.9 MEQ/L (21.0-32.0) Anion Gap 9 MEQ/L (5-15) Estimat Glomerular Filtration Rate 75 ML/MIN (>89) Total Creatine Kinase 352 U/L (39-308) Creatine Kinase MB 2.9 NG/ML (0.5-3.6) Creatine Kinase MB % 0.8 % (0.0-4.0) Troponin I LESS THAN 0.02 NG/ML B-Type Natriuretic Peptide 6 PG/ML (0-100) Radiology studies were reviewed and remarkable for Last Impressions Chest X-Ray 09/25/17247 Signed Impressions: CONCLUSION: Negative examination. Patient reports that he currently feels better at this time, reports that chest pain is resolved, he still has some back pain. CTA pending. Last Impressions Chest X-Ray 09/25/17247 Signed Impressions: CONCLUSION: Negative examination. Aorta CTA 09/25/17247 Signed Impressions: CONCLUSION: 1. Unremarkable CTA. No evidence of dissection or mass. Benign right renal cys t Diagnosis Primary Impression: Chest pain Qualified Codes: R07.9 - Chest pain, unspecified Admitting Information Admitting Physician Requests: Kristen Ansari DO Sep 25, 2017 02:55
[2017-09-25] MEDS ORDERED: ASPIRIN 81 MG CHEW TAB PO ONE (03:00)
[2017-09-25] MEDS ORDERED: SODIUM CHLORIDE 0.9% FLUSH 10 ML FLUSH IVF PRN (03:00)
[2017-09-25] MEDS: NITROGLYCERIN 0.4 MG SL 25 TABS/BTL SL SCH ×3 (03:03→03:13)
[2017-09-25 03:12] LABS: AUTOMATED NEUTROPHIL # 2.2 TH/MM3 (1.8-7.7); BASOPHIL # 0.1 TH/MM3 (0-0.2); BASOPHIL % 1.1 % (0.0-2.0); EOSINOPHIL # 0.3 TH/MM3 (0-0.4); EOSINOPHIL % 5.3 % (0.0-4.0); HEMATOCRIT 48.4 % (39.0-51.0); HEMOGLOBIN 16.4 GM/DL (13.0-17.0); LYMPH % 48.6 % (9.0-44.0); LYMPHOCYTE # 3.1 TH/MM3 (1.0-4.8); MEAN CELL VOLUME 84.9 FL (80.0-100.0); MEAN CORPUSCULAR HEMOGLOBIN 28.8 PG (27.0-34.0); MEAN PLATELET VOLUME 10.1 FL (7.0-11.0); MONO % 10.1 % (0.0-8.0); MONOCYTE # 0.6 TH/MM3 (0-0.9); NEUT % 34.9 % (16.0-70.0); PLATELET COUNT 179 TH/MM3 (150-450); WHITE BLOOD COUNT 6.3 TH/MM3 (4.0-11.0)
--- NOTE | 2017-09-25 03:21 | RADRPT ---
EXAM DATE: 09/25/2017 3:10 AM EDT AGE/SEX: 57 years / Male INDICATIONS: Back pain. CLINICAL DATA: This is the patient's initial encounter. Patient reports that signs and symptoms have been present for 1 day and indicates a pain score of 6/10. MEDICAL/SURGICAL HISTORY: Hypertension. Diabetes mellitus type II. None. COMPARISON: [facility] – [place], CHEST SINGLE AP, 07/16/2017. . FINDINGS: A single AP view of the chest demonstrates the lungs to be symmetrically aerated without evidence of mass, infiltrate or effusion. The cardiomediastinal contours are unremarkable. Osseous structures a re intact. CONCLUSION: Negative examination. Electronically signed by: Thanh Sanchez MD 09/25/2017 3:20 AM EDT
[2017-09-25 03:23] LABS: PROTHROMBIN TIME - PATIENT 10.6 SEC (9.8-11.6)
[2017-09-25 03:26] LABS: D-DIMER 0.22 MG/L FEU (0.00-0.50)
[2017-09-25 03:45] LABS: ALBUMIN 3.7 GM/DL (3.4-5.0); ALKALINE PHOSPHATASE 65 U/L (45-117); ALT (GPT) 41 U/L (12-78); AST (GOT) 48 U/L (15-37); BICARBONATE 24.9 MEQ/L (21.0-32.0); BLOOD UREA NITROGEN 19 MG/DL (7-18); CALCIUM 8.8 MG/DL (8.5-10.1); CHLORIDE 101 MEQ/L (98-107); CREATININE 1.21 MG/DL (0.60-1.30); GLOMERULAR FILTRATION RATE 75 ML/MIN (>89); GLUCOSE,RANDOM 255 MG/DL (74-106); SODIUM (NA) 135 MEQ/L (136-145); TOTAL BILIRUBIN ADULT 0.6 MG/DL (0.2-1.0); TOTAL PROTEIN 8.3 GM/DL (6.4-8.2); TROPONIN I LESS THAN 0.02 NG/ML (0.02-0.05)
[2017-09-25] MEDS ORDERED: IOHEXOL 350 MG/ML 10 ML VIAL (for RAD DIAG) IVCONTRAST ONE (05:22)
--- NOTE | 2017-09-25 05:31 | RADRPT ---
EXAM DATE: 09/25/2017 5:21 AM EDT AGE/SEX: 57 years / Male INDICATIONS: Chest pain that radiates to the patient's back; rule out aortic dissection. CLINICAL DATA: This is the patient's initial encounter. Patient reports that signs and symptoms have been present for 1 day and indicates a pain score of 7/10. MEDICAL/SURGICAL HISTORY: Hypertension. Diabetes. None. RADIATION DOSE: 9.52 CTDI (mGy) COMPARISON: No prior exams available for comparison. TECHNIQUE: Volumetric scanning was performed using a multi-row detector CT scanner during bolus infu karan of 96 ml Omnipaque 350 (iohexol) nonionic water-soluble contrast as a single exam dose. The da ta was post processed with a variety of visualization algorithms including full volume maximum intens ity projection, multi-planar sliding thin slab reformation, curved planar reformation, and surface re ndering techniques. Using automated exposure control and adjustment of the mA and/or kV according to patient size, radiation dose was kept as low as reasonably achievable to obtain optimal diagnostic q uality images. FINDINGS: Lungs: There is no consolidation or pneumothorax. No concerning pulmonary nodule is visualized. No pleural fluid is present. Mediastinum: No abnormally enlarged lymph nodes by CT criteria. No axillary or hilar abnormalities a re identified. Abdomen: The liver and spleen are free of focal defects. The gallbladder and pancreas demonstrate no abnormality. The adrenal glands are normal. The kidneys demonstrate no evidence of solid renal mass or hydronephrosis. No free fluid or abdominal masses are identified. No para-aortic adenopathy is see n. Pelvis: No evidence of free fluid or pelvic mass. No abnormally enlarged inguinal or retroperitoneal lymph nodes are present. The bladder is unremarkable. Thoracic Aorta: The thoracic aortic root is normal with normal branching of the great vessels. Ther e is no evidence of aneurysm or dissection. Abdominal Aorta: The aorta is normal in caliber without aneurysm or dissection. The renal arteries are patent bilaterally. The proximal celiac and superior mesenteric arteries are patent and normal i n diameter. Pelvic Vessels: The internal iliac and external iliac vessels are patent without aneurysm or stenosi s. CONCLUSION: 1. Unremarkable CTA. No evidence of dissection or mass. Benign right renal cyst Electronically signed by: Thanh Sanchez MD 09/25/2017 5:29 AM EDT
[2017-09-25] MEDS ORDERED: SODIUM CHLORIDE 0.9% FLUSH 10 ML FLUSH IV FLUSH PRN (05:45)
[2017-09-25 06:50] LABS: TROPONIN I LESS THAN 0.02 NG/ML (0.02-0.05)
[2017-09-25] MEDS ORDERED: GLUCAGON 1 MG/ML VIAL OTHER PRN (07:30)
[2017-09-25] MEDS ORDERED: DEXTROSE 50% IN WATER 50 ML VIAL(D50) IV PUSH PRN (07:30)
[2017-09-25] MEDS: INSULIN ASPART SUPPLEMENTAL SCALE SQ SCH ×2 (08:00→13:59)
[2017-09-25] MEDS ORDERED: SODIUM CHLORIDE 0.9% FLUSH 10 ML FLUSH IV FLUSH SCH (09:00)
[2017-09-25 09:29] LABS: TROPONIN I LESS THAN 0.02 NG/ML (0.02-0.05)
--- NOTE | 2017-09-25 09:32 | HHI.HP ---
[facility] Primary Care Physician Noam Rodriguez M.D. Chief Complaint Chest pain History of Present Illness This is a 57-year-old male with history of diabetes and hypertension the presents to ED with a complaint of a chest discomfort that began last evening. Patient states that he had finished with his [employer] business and had just finished eating a cheeseburger. He was in the shower and developed chest discomfort when he moved his right arm to reach behind his back to wash it. He states the discomfort was in the right side of his chest that eventually did radiate more towards the center of his chest. He also had back pain with this. States the worst level is a 9 out of 10 and currently about a 4 out of 10. He was not short of breath, nauseous, diaphoretic with the symptoms. Denies history of CAD but cannot recall any recent stress test. Cannot recall ever having a cardiac catheterization. Review of Systems General: Patient denies fevers, chills, and recent travel. HEENT: Patient denies headache, sore throat, difficulty swallowing. Cardiovascular: Has the chest discomfort as mentioned above. Denies sensation of heart beating rapidly or irregularly. No syncope. Denies diaphoresis. Respiratory: Denies shortness of breath or inspirational chest discomfort. Denies coughing wheezing or hemoptysis. GI: Patient denies nausea, vomiting, diarrhea, abdominal pain, bloody stools. Musculoskeletal: Complains of back pain. Patient denies joint pain or edema. Denies calf pain or edema. Neurovascular: Patient denies numbness, tingling, weakness in extremities. Denies headache. Endocrine: Denies polyuria and polydipsia. Hematologic: Denies easy bruising. Skin: Denies rash or itching. Past Family Social History Allergies: Coded Allergies: No Known Allergies (Verified Allergy, Unknown, 09/25/17) Past Medical History Hypertension and diabetes. Denies hyperlipidemia and states he has never been on statin therapy even with history of diabetes. Denies known CAD. Past Surgical History Arthroscopic surgery of right knee. Reported Medications Reported Meds & Active Scripts Active Reported Metformin (Metformin HCl) 500 Mg Tab 500 Mg PO DAILY With a meal Lisinopril 5 Mg Tab 5 Mg PO DAILY Glipizide 5 Mg Tab 5 Mg PO DAILY Take 30 minutes before a meal Active Ordered Medications Current Medications Medications (Trade) Dose Ordered Sig/Samy Route Start Time Stop Time Status Last Admin (NS Flush) 2 ml UNSCH PRN IVF 09/25/17 03:00 (NS Flush) 2 ml UNSCH PRN IV FLUSH 09/25/17 05:45 (NS Flush) 2 ml BID IV FLUSH 09/25/17 09:00 (NovoLOG SUPPLEMENTAL SCALE) 1 ACHS SLIDING SCALE SQ 09/25/17 08:00 (D50w (Vial) Inj) 50 ml UNSCH PRN IV PUSH 09/25/17 07:30 (Glucagon Inj) 1 mg UNSCH PRN OTHER 09/25/17 07:30 Family History Denies family history of CAD. Social History Non-smoker. Denies alcohol or illicit drug use. Physical Exam Vital Signs Vital Signs Date Time Temp Pulse Resp B/P (MAP) Pulse Ox O2 Delivery O2 Flow Rate FiO2 09/25/17 08:00 96.5 69 20 110/62 (78) 98 09/25/17 06:15 09/25/17 05:36 96 09/25/17 04:41 64 16 104/62 (76) 96 Room Air 09/25/17 03:14 18 09/25/17 03:12 64 18 99/60 (73) 98 Room Air 09/25/17 03:04 72 18 112/68 (83) 98 Room Air 09/25/17 02:55 66 18 98 Room Air 09/25/17 02:51 65 119/78 (92) 120/81 (94) 09/25/17 02:44 71 18 119/78 (92) 98 Room Air 09/25/17 02:29 97.6 64 18 121/80 (94) 100 Physical Exam GENERAL: This is a well-nourished, well-developed patient, in no apparent distress. Patient speaks in clear complete sentences. Patient is pleasant. HEENT: Head is atraumatic and normocephalic. Neck is supple without lymphadenopathy and trachea is midline. No JVD or carotid bruits. CARDIOVASCULAR: Regular rate and rhythm without murmurs, gallops, or rubs. RESPIRATORY: Clear to auscultation. Breath sounds equal bilaterally. No wheezes , rales, or rhonchi. Chest wall is nontender. No use of accessory muscles. GASTROINTESTINAL: Abdomen is nontender, nondistended. Abdomen soft. No obvious pulsatile mass or bruit. No CVA tenderness. Strong femoral pulses bilaterally. Normal bowel sounds in all quadrants. MUSCULOSKELETAL: Can reproduce discomfort in the right side of his upper back with twisting of the torso. Patient is moving upper and lower extremities freely. No calf tenderness or edema, no Homans sign. Strong pulses in upper and lower extremities. NEUROLOGICAL: Patient is alert and oriented. Cranial nerves 2-12 are grossly intact. No focal deficits and speech is clear. SKIN: No rash and turgor is normal. Laboratory Laboratory Tests Test 09/25/17 02:54 09/25/17 05:55 09/25/17 08:35 White Blood Count 6.3 Red Blood Count 5.70 Hemoglobin 16.4 Hematocrit 48.4 Mean Corpuscular Volume 84.9 Mean Corpuscular Hemoglobin 28.8 Mean Corpuscular Hemoglobin Concent 34.0 Red Cell Distribution Width 13.0 Platelet Count 179 Mean Platelet Volume 10.1 Neutrophils (%) (Auto) 34.9 Lymphocytes (%) (Auto) 48.6 Monocytes (%) (Auto) 10.1 Eosinophils (%) (Auto) 5.3 Basophils (%) (Auto) 1.1 Neutrophils # (Auto) 2.2 Lymphocytes # (Auto) 3.1 Monocytes # (Auto) 0.6 Eosinophils # (Auto) 0.3 Basophils # (Auto) 0.1 CBC Comment DIFF FINAL Differential Comment Prothrombin Time 10.6 Prothromb Time International Ratio 1.0 Activated Partial Thromboplast Time 24.2 D-Dimer Quantitative (PE/DVT) 0.22 Blood Urea Nitrogen 19 Creatinine 1.21 Random Glucose 255 Total Protein 8.3 Albumin 3.7 Calcium Level 8.8 Magnesium Level 2.0 Alkaline Phosphatase 65 Aspartate Amino Transf (AST/SGOT) 48 Alanine Aminotransferase (ALT/SGPT) 41 Total Bilirubin 0.6 Sodium Level 135 Potassium Level 5.1 Chloride Level 101 Carbon Dioxide Level 24.9 Anion Gap 9 Estimat Glomerular Filtration Rate 75 Total Creatine Kinase 352 246 Creatine Kinase MB 2.9 2.6 Creatine Kinase MB % 0.8 Troponin I LESS THAN 0.02 LESS THAN 0.02 B-Type Natriuretic Peptide 6 Result Diagram: 09/25/17 0254 09/25/17253 Imaging Last 48 hours Impressions Chest X-Ray 09/25/17247 Signed Impressions: CONCLUSION: Negative examination. Aorta CTA 09/25/17247 Signed Impressions: CONCLUSION: 1. Unremarkable CTA. No evidence of dissection or mass. Benign right renal cys t Course EKGs are sinus rhythm without significant ST segment depressions or elevations. Caprini VTE Risk Assessment Caprini VTE Risk Assessment: No/Low Risk (score <= 1) Caprini Risk Assessment Model Point Value = 1 Point Value = 2 Point Value = 3 Point Value = 5 Age 41-60 Minor surgery BMI > 25 kg/m2 Swollen legs Varicose veins or History of unexplained or recurrent spontaneous Oral contraceptives or hormone replacement Sepsis (< 1 month) Serious lung disease, including pneumonia (< 1 month) Abnormal pulmonary function Acute myocardial infarction Congestive heart failure (< 1 month) History of inflammatory bowel disease Medical patient at bed rest Age 61-74 Arthroscopic surgery Major open surgery (> 45 min) Laparoscopic surgery (> 45 min) Malignancy Confined to bed (> 72 hours) Immobilizing plaster cast Central venous access Age >= 75 History of VTE Family history of VTE Factor V Leiden Prothrombin [id number] Lupus anticoagulant Anticardiolipin antibodies Elevated serum homocysteine Heparin-induced thrombocytopenia Other congenital or acquired thrombophilia Stroke (< 1 month) Elective arthroplasty Hip, pelvis, or leg fracture Acute spinal cord injury (< 1 month) Prophylaxis Regimen Total Risk Factor Score Risk Level Prophylaxis Regimen 0-1 Low Early ambulation 2 Moderate Order ONE of the following: *Sequential Compression Device (SCD) *Heparin 5000 units SQ BID 3-4 Higher Order ONE of the following medications: *Heparin 5000 units SQ TID *Enoxaparin/Lovenox 40 mg SQ daily (WT < 150 kg, CrCl > 30 mL/min) *Enoxaparin/Lovenox 30 mg SQ daily (WT < 150 kg, CrCl > 10-29 mL/min) *Enoxaparin/Lovenox 30 mg SQ BID (WT < 150 kg, CrCl > 30 mL/min) AND/OR *Sequential Compression Device (SCD) 5 or more Highest Order ONE of the following medications: *Heparin 5000 units SQ TID (Preferred with Epidurals) *Enoxaparin/Lovenox 40 mg SQ daily (WT < 150 kg, CrCl > 30 mL/min) *Enoxaparin/Lovenox 30 mg SQ daily (WT < 150 kg, CrCl > 10-29 mL/min) *Enoxaparin/Lovenox 30 mg SQ BID (WT < 150 kg, CrCl > 30 mL/min) AND *Sequential Compression Device (SCD) Assessment and Plan Assessment and Plan * Atypical chest pain: Patient has had serial cardiac enzymes and EKGs for ruling out purposes. He will be seen by Dr. Marion of cardiology in the chest pain center. He will undergo a Lexiscan as he states he would not be able to walk on the treadmill with bad knees. He will be discharged home if the stress test is nonischemic with instructions to follow-up with PCP. Return to ED for interval issues. * Hypertension: Continue medication. * Diabetes: We will hold his medication. Also he will need to hold Glucophage for 2 days as he had a CT with contrast. Patient will be on sliding scale insulin coverage while in chest pain center. He should follow diabetic diet. Also patient states he is not on statin therapy. He should be on a statin with his history of diabetes. He should discuss this with his PCP as there may be a contraindication that his PCP is aware of. Patient is stable at this time. He is agreeable to this plan. Hollis Hutton Sep 25, 2017 09:32
--- NOTE | 2017-09-25 09:33 | HHI.DCPOC ---
Discharge Care Plan Diagnosis: (1) Chest pain, atypical (2) Hypertension (3) DM (diabetes mellitus) Goals to Promote Your Health Discuss taking a cholesterol medication with your primary care physician. This may be of benefit to you with your history of diabetes. However your primary care physician may have found that you have a contraindication, so you will need to discuss this with your PCP. * To prevent worsening of your condition and complications * To maintain your health at the optimal level Directions to Meet Your Goals Take your medications as prescribed Follow your dietary instruction Follow activity as directed Keep your appointments as scheduled Take your immunizations and boosters as scheduled If your symptoms worsen call your PCP, if no PCP go to Urgent Care Center or Emergency Room Smoking is Dangerous to Your Health. Avoid second hand smoke Call the 24-hour hour crisis hotline for domestic abuse at Hollis Hutton Sep 25, 2017 09:33
[2017-09-25] MEDS ORDERED: REGADENOSON INJ 0.4 MG/5 ML SYR ONE (11:23)
--- NOTE | 2017-09-25 12:49 | RADRPT ---
EXAM DATE: 09/25/2017 12:41 PM EDT AGE/SEX: 57 years / Male INDICATIONS:Angina. . Left sided chest pain for one day. CLINICAL DATA: This is the patient's initial encounter. Patient reports that signs and symptoms have been present for 1 day and indicates a pain score of 8/10. MEDICAL/SURGICAL HISTORY: Hypertension. Diabetes mellitus type II. Non-responsive. None. COMPARISON: No prior exams available for comparison. No external comparison. DOSE: 11.0 mCi Tc 99m Myoview at rest 34.6 mCi [id number] at stress 0.4 mg Lexiscan STRESS SYMPTOMS: Short of breath. EJECTION FRACTION: 56 % TECHNIQUE: The patient underwent pharmacologic stress with infusion of prescribed dose. Continuous ECG tracing was monitored during stress. Gated SPECT imaging was performed after stress and conventi onal SPECT imaging was performed at rest. The examination was performed on a SPECT/CT scanner, both attenuation and non-corrected datasets were reviewed. FINDINGS: Distribution: The maximum perfused segment at stress is in the septal wall. Perfusion Study: The pattern of perfusion at stress is within normal limits. Gated Study: There are intact wall motion and wall thickening without hypokinetic or dyskinetic segm ents. The ejection fraction is calculated at 56%. RISK CATEGORY: Low (<1% Annual Motality Rate) CONCLUSION: 1. No significant reversibility to suggest ischemia. Wall motion within normal limits with ejection fraction at 56%. Electronically signed by: Evert Head MD 09/25/2017 12:48 PM EDT
--- NOTE | 2017-09-25 13:02 | PD.CARD.PN ---
Subjective Subjective Remarks 57-year-old gentleman was in the shower and reached with his right arm backward over his head twisting his body at the same time and developed sudden severe pain under his right arm and chest this pain seemed to radiate directly through to the mid spine. He does have known history of low back problems and is under care by his primary care physician Dr. Oneyda Rodriguez and a instructor painting. However for some reason the patient seemed to think that this episode was related to eating a hamburger because subsequently he had the sense of acid reflux with a lot of belching. Also been feeling some shortness of breath. Became somewhat concerned because he has not had previous episodes like this. History was reviewed and discussed with the physician database development project manager and I am in agreement with it as documented. Objective Medications Current Medications Medications (Trade) Dose Ordered Sig/Samy Route Start Time Stop Time Status Last Admin (NS Flush) 2 ml UNSCH PRN IVF 09/25/17 03:00 (NS Flush) 2 ml UNSCH PRN IV FLUSH 09/25/17 05:45 (NS Flush) 2 ml BID IV FLUSH 09/25/17 09:00 09/25/17 09:00 (NovoLOG SUPPLEMENTAL SCALE) 1 ACHS SLIDING SCALE SQ 09/25/17 08:00 (D50w (Vial) Inj) 50 ml UNSCH PRN IV PUSH 09/25/17 07:30 (Glucagon Inj) 1 mg UNSCH PRN OTHER 09/25/17 07:30 Vital Signs / I&O Vital Signs Date Time Temp Pulse Resp B/P (MAP) Pulse Ox O2 Delivery O2 Flow Rate FiO2 09/25/17 10:18 60 09/25/17 08:00 96.5 69 20 110/62 (78) 98 09/25/17 06:15 09/25/17 05:36 96 09/25/17 04:41 64 16 104/62 (76) 96 Room Air 09/25/17 03:14 18 09/25/17 03:12 64 18 99/60 (73) 98 Room Air 09/25/17 03:04 72 18 112/68 (83) 98 Room Air 09/25/17 02:55 66 18 98 Room Air 09/25/17 02:51 65 119/78 (92) 120/81 (94) 09/25/17 02:44 71 18 119/78 (92) 98 Room Air 09/25/17 02:29 97.6 64 18 121/80 (94) 100 Physical Exam Muscular heavy black male in no acute distress Upper back is nontender and currently has good range of motion with only slight pain. Chest is clear to auscultation with no rales wheezes or rhonchi Cardiovascular regular sinus rhythm with no gallops rubs or murmurs Laboratory Laboratory Tests Test 09/25/17 02:54 09/25/17 05:55 09/25/17 08:35 White Blood Count 6.3 TH/MM3 Red Blood Count 5.70 MIL/MM3 Hemoglobin 16.4 GM/DL Hematocrit 48.4 % Mean Corpuscular Volume 84.9 FL Mean Corpuscular Hemoglobin 28.8 PG Mean Corpuscular Hemoglobin Concent 34.0 % Red Cell Distribution Width 13.0 % Platelet Count 179 TH/MM3 Mean Platelet Volume 10.1 FL Neutrophils (%) (Auto) 34.9 % Lymphocytes (%) (Auto) 48.6 % Monocytes (%) (Auto) 10.1 % Eosinophils (%) (Auto) 5.3 % Basophils (%) (Auto) 1.1 % Neutrophils # (Auto) 2.2 TH/MM3 Lymphocytes # (Auto) 3.1 TH/MM3 Monocytes # (Auto) 0.6 TH/MM3 Eosinophils # (Auto) 0.3 TH/MM3 Basophils # (Auto) 0.1 TH/MM3 CBC Comment DIFF FINAL Differential Comment Prothrombin Time 10.6 SEC Prothromb Time International Ratio 1.0 RATIO Activated Partial Thromboplast Time 24.2 SEC D-Dimer Quantitative (PE/DVT) 0.22 MG/L FEU Blood Urea Nitrogen 19 MG/DL Creatinine 1.21 MG/DL Random Glucose 255 MG/DL Total Protein 8.3 GM/DL Albumin 3.7 GM/DL Calcium Level 8.8 MG/DL Magnesium Level 2.0 MG/DL Alkaline Phosphatase 65 U/L Aspartate Amino Transf (AST/SGOT) 48 U/L Alanine Aminotransferase (ALT/SGPT) 41 U/L Total Bilirubin 0.6 MG/DL Sodium Level 135 MEQ/L Potassium Level 5.1 MEQ/L Chloride Level 101 MEQ/L Carbon Dioxide Level 24.9 MEQ/L Anion Gap 9 MEQ/L Estimat Glomerular Filtration Rate 75 ML/MIN Total Creatine Kinase 352 U/L 246 U/L 241 U/L Creatine Kinase MB 2.9 NG/ML 2.6 NG/ML 2.0 NG/ML Creatine Kinase MB % 0.8 % Troponin I LESS THAN 0.02 NG/ML LESS THAN 0.02 NG/ML LESS THAN 0.02 NG/ML B-Type Natriuretic Peptide 6 PG/ML Imaging Last 24 hours Impressions Chest X-Ray 09/25/17247 Signed Impressions: CONCLUSION: Negative examination. Aorta CTA 09/25/17247 Signed Impressions: CONCLUSION: 1. Unremarkable CTA. No evidence of dissection or mass. Benign right renal cys t Myocardial Perfusion Scan Nuc Med 09/25/17 0000 Signed Impressions: CONCLUSION: 1. No significant reversibility to suggest ischemia. Wall motion within normal limits with ejection fraction at 56%. Assessment and Plan Assessment and Plan Patient is ruled out by full chest pain center protocol including a negative nuclear stress test. His pain most likely is due to musculoskeletal pain precipitated by twisting his upper back. He is instructed to follow-up with Dr. Rodriguez and to avoid heavy lifting or rotation until this can be accomplished. Discussed Condition With Discussed with the physician database development project manager and with the patient Elder Marion MD Sep 25, 2017 13:02
--- NOTE | 2017-09-25 13:06 | TR ---
Date Performed: 09/25/2017 Time Performed: 11:48:30 DOCTOR: Elder Marion DRUG LIST: CLINICAL HISTORY: ANGINA REASON FOR TEST: Angina REASON FOR ENDING: OBSERVATION: CONCLUSION: Lexiscan stress test was performed under standard four minute protocol. Radionuclide was injected one minute prior to ending the test. No electrocardiographic abormalities were present to suggest ischemia. Nuclear imaging and interpretation are pending. COMMENTS: Negative scan
--- NOTE | 2017-09-25 13:09 | EKG ---
Date Performed: 09/25/2017 Time Performed: 04:54:08 PTAGE: 57 years EKG: SINUS BRADYCARDIA PROBABLE INFERIOR MYOCARDIAL INFARCTION ABNORMAL ECG No significant ross e PREVIOUS TRACING : 07/16/2017 05.52 DOCTOR: Elder Marion Interpretating Date/Time 09/25/2017 13:07:43
--- NOTE | 2017-09-25 13:10 | EKG ---
Date Performed: 09/25/2017 Time Performed: 02:08:28 PTAGE: 57 years EKG: Sinus rhythm PROBABLE INFERIOR MYOCARDIAL INFARCTION ABNORMAL ECG No change PREVIOUS TRACING : 09/25/2017 01.40 DOCTOR: Elder Marion Interpretating Date/Time 09/25/2017 13:08:29
--- NOTE | 2017-09-25 13:10 | EKG ---
Date Performed: 09/25/2017 Time Performed: 01:40:09 PTAGE: 57 years EKG: Sinus rhythm POSSIBLE INFERIOR MYOCARDIAL INFARCTION ABNORMAL ECG No change NO PREVIOUS TRACING DOCTOR: Elder Marion Interpretating Date/Time 09/25/2017 13:08:41
--- NOTE | 2017-09-27 18:37 | EKG ---
Date Performed: 09/25/2017 Time Performed: 08:37:04 PTAGE: 57 years EKG: SINUS BRADYCARDIA WITH SINUS ARRHYTHMIA POSSIBLE INFERIOR MYOCARDIAL INFARCTION ABNORMAL EC G Since PREVIOUS TRACING , no significant change noted PREVIOUS TRACIN09/25/2017 04.54 DOCTOR: Luanne Schaffer Interpretating Date/Time 09/27/2017 18:36:18
== END 2017-09-25 14:59 | disposition home or self-care (01) ==
LOC: NEPE 02:27 → NEDA 05:34 → NEPFCDU 06:39
PROVIDERS: ADMIT Internal Medicine Interventional Cardiology; ATTEND Internal Medicine Interventional Cardiology
DX: R07.89 Other chest pain (principal); I10 Essential (primary) hypertension; E11.9 Type 2 diabetes mellitus without complications; R00.1 Bradycardia, unspecified; R94.31 Abnormal electrocardiogram [ECG] [EKG]; M54.9 Dorsalgia, unspecified; R06.02 Shortness of breath; R11.0 Nausea; K21.9 Gastro-esophageal reflux disease without esophagitis; M19.90 Unspecified osteoarthritis, unspecified site; Z79.899 Other long term (current) drug therapy; Z79.84 Long term (current) use of oral hypoglycemic drugs
CPT/HCPCS: 71045; 71275; 74174; 78452; 80053; 82550; 82552; 83735; 83880; 84484; 85025; 85379; 85610; 85730; 93005; 93017; 99285; A9502; G0378; J1815; J2785; Q9967